=== PATIENT | female | born 1935 | race Caucasian/White ===

== ENCOUNTER 2023-04-22 10:00 | Outpatient (RCR) | payer MEDICARE, SELFPAY ==
[2023-03-25 10:23] VITALS: BP 185/94; PULSE 103; RESP 18; TEMP 35.7; BMI 44.4
--- NOTE | 2023-03-25 11:10 | HP.PCM_ITS ---
History of Present Illness Date of Service: 03/25/23 Chief Complaint: Traumatic wound of the right knee History of Wound: This is an 87-year-old obese, diabetic female who is a resident of [facility] in [place], [place]. The patient is somewhat forgetful and nonspecific about the history of the traumatic wound on her right knee. It appears as though she fell approximately 2 months ago, sustaining an open wound on her right knee. The staff at her independent living facility only recently discovered her wound, and referred her for further evaluation and treatment. Recent management has included the use of saline wet-to-dry dressings on a daily basis. The patient claims to sleep flat at night. Ambulation is somewhat limited, and she requires the use of a walker. She sits a great deal of each day, playing bridge. The patient has multiple pre-existing medical problems, which include diabetes mellitus, hypertension, hyperlipidemia, chronic kidney disease, atrial fibrillation, etc. 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 Swelling of right lower extremity Venous stasis dermatitis of right lower extremity Home Medications acetaminophen 325 mg tablet (Aphen) 325 mg PO Q6H PRN pain 03/25/23 [History Last Taken Unknown] bumetanide 2 mg tablet 2 mg PO BID 03/25/23 [History Last Taken Unknown] cholecalciferol (vitamin D3) 25 mcg (1,000 unit) capsule 25 mcg PO DAILY 03/25/23 [History Last Taken Unknown] cyanocobalamin (vitamin B-12) 1,000 mcg/mL injection kit 100 mcg IM QMONTH 03/25/23 [History Last Taken Unknown] docusate sodium 100 mg tablet (Docuprene) 100 mg PO DAILY 03/25/23 [History Last Taken Unknown] ferrous sulfate 325 mg (65 mg iron) tablet (FeroSul) 325 mg PO DAILY 03/25/23 [History Last Taken Unknown] metoprolol succinate 50 mg tablet,extended release 24 hr (Toprol XL) 50 mg PO BID 03/25/23 [History Last Taken Unknown] pantoprazole 40 mg tablet,delayed release 40 mg PO DAILY 03/25/23 [History Last Taken Unknown] sertraline 50 mg tablet (Zoloft) 50 mg PO DAILY 03/25/23 [History Last Taken Unknown] simvastatin 20 mg tablet 20 mg PO QHS 03/25/23 [History Last Taken Unknown] sitagliptin phosphate 25 mg tablet (Januvia) 25 mg PO DAILY 03/25/23 [History Last Taken Unknown] warfarin 2.5 mg tablet (Jantoven) 2.5 mg PO DAILY 03/25/23 [History Last Taken Unknown] Allergy/AdvReac Type Severity Reaction Status Date / Time No Known Allergies Allergy Verified 03/25/23 10:28 Surgical History History of hysterectomy Social History Smoking Status: Never smoker Vital Signs Vital Signs Vital Signs: 03/25/23 10:23 Temperature 96.2 F L Temperature Source Temporal Pulse Rate 103 H Respiratory Rate 18 Blood Pressure 185/94 H Blood Pressure Mean 124 Blood Pressure Source Monitor Blood Pressure Position Semi-Fowlers Blood Pressure Location Left Arm Weight Weight: 310 lb Body Mass Index (BMI) 44.4 Physical Exam Const alert, oriented x3, no apparent distress and well nourished Constitutional Narrative: The patient is morbidly obese, with a BMI of 44.4. General Appearance: cooperative, comfortable, well kempt and well developed Orientation / Consciousness: awake, oriented to person, oriented to place and oriented to time HEENT normocephalic, head/scalp atraumatic and hearing grossly normal bilaterally Head and Scalp: normal to inspection, normocephalic and atraumatic External Ear: external ears normal Eyes PERRL and EOMs intact bilaterally General Eye: normal appearance of both eyes Resp normal respiratory effort, normal air movement, no retractions and no use of accessory muscles Effort and Inspection: able to speak in complete sentences Extremity no calf tenderness General Extremity: Negative for clubbing or cyanosis Skin Wound Narrative: Mild swelling and edema are noted in the lower extremities bilaterally. Hyperpigmentation and lipodermatosclerosis are noted in the gaiter areas bilaterally. A scaly venous stasis dermatitis is noted in the gaiter areas bilaterally. An open wound is noted on the right knee. There is no sign of infection or cellulitis. Dimensions are documented elsewhere. The base of the wound appears generally pink and healthy in appearance. Undermining is noted from the 2 o'clock position to the 10 o'clock position. Neuro oriented x3, CN's II-XII intact bilaterally and moves all extremities Sensorium / Orientation: awake, alert, oriented to person, oriented to place and oriented to time Psych Appearance: grossly normal and appropriate Attitude: calm Activity / Motor Behavior: appropriate eye contact Speech: normal speech Mood & Affect: euthymic mood Thought Process: normal thought process Thought Content: normal thought content Attention / Concentration: attention grossly intact Debridement Note Debridement Note Wound debrided: Right knee Laterality: Right Type of Debridement: Excisional debridement Anesthesia Used: 5% Lidocaine Gel Depth: Down to and including healthy tissue and in the subcutaneous layer Percentage of wound debrided: 100 Instrument Used: 5mm curette Tissue Removed: Bioburden and nonviable tissue Severity: Fat Layer Exposed Amount of bleeding with debridement: Mild Bleeding Controlled with: Compression and gauze Patient tolerated procedure: Patient tolerated procedure well Debridement Free Text: Undermining is noted at the periphery of the wound from the 2:00 to the 10 o'clock position. Post-Debridement Measurements and Additional Note: Post-Debridement Measurements/Treatment - Nurse 1 - General Ulcer Assessment Start: 03/25/23 10:21 Freq: Status: Active Protocol: .LOWEXT Activity Type Activity Date Activity User E-sign Co-sign Detail Recorded Client Recorded Date Recorded By Document 03/25/23 10:23 Desktop 03/25/23 10:32 03/25/23 10:23 - Today's Visit Information Type of service Initial Visit Arrival Mode Ambulatory Transfer Assistance None Patient Identification Verified (Name & Yes ) Patient Requires Transmission-Based No Precautions Height and Weight Height 5 ft 10 in Weight 310 lb Weight in Pounds 310.0 lbs Body Mass Index (BMI) 44.4 BMI Classification Obese BSA - Isaak 2.51 Vital Signs Temperature (97.8 F-99.1 F) 96.2 F L Temperature Source Temporal Pulse Rate (60-100) 103 H Pulse Location Monitor Respiratory Rate (12-18) 18 Respiratory rate source Observation Blood Pressure (90/60-120/80) 185/94 H Blood Pressure Mean 124 Source Monitor Position Semi-Fowlers Blood Pressure Location Left Arm History Since Last Visit- (Skip if this is Patient's initial visit) Have you changed medications since your No last visit? Any new allergies or adverse reactions No Had a fall/change in ADL's that may No increase risk of falls Signs or symptoms of abuse and/or No neglect since last visit Have you been in the hospital since your No last visit? Has dressing in place as prescribed Yes Has compression in place as prescribed No Has offloadiing in place as prescribed No Experienced any changes in pain level or No management Left Footwear Regular Shoe Right Footwear Regular Shoe Pain Scale: 0-10 Numeric Is Patient Pain Free? Yes Lower Extremity Assessment/ Foot Assessment/ Toe Nail Assessment Right -Posterior Tibial Palpable Yes -Dorsalis Pedis Palpable Yes -Extremity Color Hyperpigmented, Hemosiderin -Hair Growth on Legs Yes -Hair Growth on Toes No -Temperature of Extremity Warm -Capillary Refill Less than 3 Seconds -Dependent Rubor No -Blanched when Elevated No -Lipodermatosclerosis No -Other Deformity No -Prior Foot Ulcer No -Charcot Joint No -Prior Amputation No -Thick No -Discolored No -Deformed No -Improper Length & Hygeine No Left -Posterior Tibial Palpable Yes -Dorsalis Pedis Palpable Yes -Extremity Color Hyperpigmented, Hemosiderin -Hair Growth on Legs Yes -Hair Growth on Toes No -Temperature of Extremity Warm -Capillary Refill Less than 3 Seconds -Dependent Rubor No -Blanched when Elevated No -Lipodermatosclerosis No -Other Deformity No -Prior Foot Ulcer No -Charcot Joint No -Prior Amputation No -Thick No -Discolored No -Deformed No -Improper Length & Hygeine No Neuropathy Assessment Feet - Top Side and Bottom <Entered> (a) Communication Assessment Preferred language Wolof Medical Staff Credentialing Coordinator Required No Able to Read Yes Able to Write Yes Communication Tools None Caregiver Communication Skills No Impairment Impairment Right Hearing Abillity Normal Left Hearing Abillity Normal Visual Assistive Devices None Teaching Assessment Preferences Verbal,Written, Demonstration Barriers to Learning None Readiness To Learn Good Willingness to Engage in Self Management Med Activies Readiness to Engage in Self Management Med Activities Anxiety Level Calm Cooperation Cooperative Perception Coherent Interest in Health Problem Asks Questions Education Importance Acknowledges Need Does Patient Smoke tobacco or other No substances Smoking Status Never smoker Is Patient Diabetic Yes Functional Assessment Recent Decline in Ability to Perform Ambulation Assistive Device With Patient Yes List Device(s) with Patient walker Culture/Jain/Repair Service Dispatcher Cultural/Jain Needs that may affect No Treatment Plan Would you allow our hospital bucket wash operator to No meet you for the purpose of spiritual/ emotional support? Repair Service Dispatcher to contact place of [facility] No Teaching: Wound Center *Welcome to the Wound Center -Person Taught Patient -Teaching Method Discussion, Demonstration -Response to teaching Verbalize understanding (a) 1 - + throughout - Nurse 1 - General Ulcer Measurement Start: 03/25/23 10:21 Freq: Status: Active Protocol: Activity Type Activity Date Activity User E-sign Co-sign Detail Recorded Client Recorded Date Recorded By Document 03/25/23 10:23 RB Desktop 03/25/23 10:32 RB 03/25/23 10:23 Wound Center Nurse 1 1. R knee -Combined with other wound No -Current Size (cm) - Length 1.2 -Current Size (cm) - Width 1.5 -Current Size (cm) - Depth 0.5 -Total Square Cm 1.80 -Photo Taken Yes -Tunneling No -Undermining/Tunneling Yes -Undermining/Tunneling Starts (O'clock 4 ) -Undermining/Tunneling Ends (O'clock) 10 -Maximum Distance (cm) 1 -Circular Undermining No -Exudate Amt Medium -Exudate Type Serosanguineous -Wound Margin Thickened & Rolled Under -Granulation Amt Medium (34-66%) -Granulation Quality [place] -Slough/Fibrin Yes -Necrosis Amt Medium (34-66%) -Necrotic Tissue Type Adherent Slough -Structure Exposed N/A -Texture (Cristal-wound Skin Appearance) Assessed -Moisture (Cristal-wound Skin Appearance) Assessed -Color (Cristal-wound Skin Appearance) Assessed -Temperature (Cristal-wound Skin No Abnormality Appearance) (Pt Warm) -Tenderness on Palpation (Cristal-wound No Skin Appearance) -Ulcer Cleansing Wound Cleanser -Foul Odor after Cleansing No -Anesthetic Used 5% Lidocaine Gel Lower Limb Edema Present Yes Right Calf (cm) 50 Right Ankle (cm) 28.2 Left Calf (cm) 50.5 Left Ankle (cm) 28 - Nurse 3 - General Ulcer D/C NN Start: 03/25/23 10:21 Freq: Status: Active Protocol: Activity Type Activity Date Activity User E-sign Co-sign Detail Recorded Client Recorded Date Recorded By Document 03/25/23 11:02 DL Desktop 03/25/23 11:03 DL 03/25/23 11:02 Wound Care Center Nurse 3 1. R knee -Ulcer Cleansing Rinsed/ Irrigated with Saline -Foul Odor after Cleansing No -Primary Dressing Applied Promogran -Primary Dressing Covered/Secured with Dry Gauze,Dry Gauze & Roll Gauze,Secured with Tape -Promogran 1 mariama -Multi-Layered Wrap Application Unna Boot - Bilateral ($) Treatment Response Procedure Tolerated Well Pain Scale: 0-10 Numeric Is Patient Pain Free? 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 (2) Chronic venous insufficiency: CODE(S): I87.2 - Venous insufficiency (chronic) (peripheral) (3) Venous stasis dermatitis of right lower extremity: CODE(S): I87.2 - Venous insufficiency (chronic) (peripheral) (4) Swelling of right lower extremity: CODE(S): M79.89 - Other specified soft tissue disorders (5) Edema of right lower leg: CODE(S): R60.0 - Localized edema (6) Lipodermatosclerosis: CODE(S): M79.3 - Panniculitis, unspecified (7) Hypertension: CODE(S): I10 - Essential (primary) hypertension (8) Diabetes mellitus: CODE(S): E11.9 - Type 2 diabetes mellitus without complications (9) Hyperlipidemia associated with type 2 diabetes mellitus: CODE(S): E11.69 - Type 2 diabetes mellitus with other specified complication; E78.5 - Hyperlipidemia, unspecified (10) Atrial fibrillation: CODE(S): I48.91 - Unspecified atrial fibrillation (11) Chronic kidney disease, stage IV (severe): CODE(S): N18.4 - Chronic kidney disease, stage 4 (severe) (12) Iron deficiency anemia: CODE(S): D50.9 - Iron deficiency anemia, unspecified (13) Aortic stenosis: CODE(S): I35.0 - Nonrheumatic aortic (valve) stenosis (14) B12 deficiency: CODE(S): E53.8 - Deficiency of other specified B group vitamins (15) Depression: CODE(S): F32.A - Depression, unspecified (16) History of hysterectomy: CODE(S): Z90.710 - Acquired absence of both cervix and uterus (17) Morbid obesity with BMI of 40.0-44.9, adult: CODE(S): E66.01 - Morbid (severe) obesity due to excess calories; Z68.41 - Body mass index [BMI] 40.0-44.9, adult PLAN: Plan This is an 87-year-old obese diabetic female who presents with a traumatic wound on the right knee. The wound has been present for approximately 2 months, though the patient cannot remember specifically when the injury occurred. A dditionally, she presents with swelling, edema, lipodermatosclerosis, and other skin changes in the lower extremities to suggest the presence of chronic venous insufficiency and venous stasis disease. With respect to the wound of the right knee, we are to implement the use of Promogran which will be applied topically on a daily basis. It is to be placed at the base of the wound and in the underm ined portions. Furthermore, we are to implement the use of Unna boots bilaterally, which will be changed twice weekly. The patient has been encouraged to ambulate as much as possible. However, significant enhancement of activity is unlikely. Prolonged idle sitting has been discouraged. The patient is to continue sleeping on a flat mattress at night. She is to elevate her legs during daytime hours as well. Elevation is to be to heart level, or higher. Weight loss has also been recommended. The patient has been advised to optimize her nutritional intake, as well as optimizing her glycemic control. The patient is to return in 1 week for reassessment. Total time: 50 minutes
--- NOTE | 2023-04-02 11:54 | WC ---
Nurse from [facility], Lexis Martin left message that pt was canselling her appt and needed to know what further orders were for pt regarding her wound. Instructed [facility], per her CasemanagerErwin, to continue her present orders, Promogran and Unna Boots until pt returns to Wound Center next week.
[2023-04-15 10:16] VITALS: BP 129/60; PULSE 116; RESP 18; TEMP 36.1; BMI 44.4
--- NOTE | 2023-04-15 10:59 | PCM.WC.HP ---
History of Present Illness Date of Service: 04/15/23 Chief Complaint: Traumatic wound of the right knee History of Wound: This is an 87-year-old obese, diabetic female who is a resident of [facility] in [place], [place]. The patient is somewhat forgetful and nonspecific about the history of the traumatic wound on her right knee. It appears as though she fell approximately 2 months ago, sustaining an open wound on her right knee. The staff at her independent living facility only recently discovered her wound, and referred her for further evaluation and treatment. Recent management had included the use of saline wet-to-dry dressings on a daily basis. The patient claims to sleep flat at night. Ambulation is somewhat limited, and she requires the use of a walker. She sits a great deal of each day, playing bridge. The patient has multiple pre-existing medical problems, which include diabetes mellitus, hypertension, hyperlipidemia, chronic kidney disease, atrial fibrillation, etc. 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 Swelling of right lower extremity Venous stasis dermatitis of right lower extremity Home Medications acetaminophen 325 mg tablet (Aphen) 325 mg PO Q6H PRN pain 03/25/23 [History Last Taken Unknown] bumetanide 2 mg tablet 2 mg PO BID 03/25/23 [History Last Taken Unknown] cholecalciferol (vitamin D3) 25 mcg (1,000 unit) capsule 25 mcg PO DAILY 03/25/23 [History Last Taken Unknown] cyanocobalamin (vitamin B-12) 1,000 mcg/mL injection kit 100 mcg IM QMONTH 03/25/23 [History Last Taken Unknown] docusate sodium 100 mg tablet (Docuprene) 100 mg PO DAILY 03/25/23 [History Last Taken Unknown] ferrous sulfate 325 mg (65 mg iron) tablet (FeroSul) 325 mg PO DAILY 03/25/23 [History Last Taken Unknown] metoprolol succinate 50 mg tablet,extended release 24 hr (Toprol XL) 50 mg PO BID 03/25/23 [History Last Taken Unknown] pantoprazole 40 mg tablet,delayed release 40 mg PO DAILY 03/25/23 [History Last Taken Unknown] sertraline 50 mg tablet (Zoloft) 50 mg PO DAILY 03/25/23 [History Last Taken Unknown] simvastatin 20 mg tablet 20 mg PO QHS 03/25/23 [History Last Taken Unknown] sitagliptin phosphate 25 mg tablet (Januvia) 25 mg PO DAILY 03/25/23 [History Last Taken Unknown] warfarin 2.5 mg tablet (Jantoven) 2.5 mg PO DAILY 03/25/23 [History Last Taken Unknown] Allergy/AdvReac Type Severity Reaction Status Date / Time No Known Allergies Allergy Verified 03/25/23 10:28 Surgical History History of hysterectomy Social History Smoking Status: Never smoker Vital Signs Vital Signs Vital Signs: 04/15/23 10:16 Temperature 97.0 F L Temperature Source Temporal Pulse Rate 116 H Respiratory Rate 18 Blood Pressure 129/60 H Blood Pressure Mean 83 Blood Pressure Source Monitor Blood Pressure Position Sitting Blood Pressure Location Right Arm Oxygen Delivery Method Room Air Weight Weight: 310 lb Body Mass Index (BMI) 44.4 Physical Exam Const alert, oriented x3, no apparent distress and well nourished Constitutional Narrative: The patient is morbidly obese, with a BMI of 44.4. General Appearance: cooperative, comfortable, well kempt and well developed Orientation / Consciousness: awake, oriented to person, oriented to place and oriented to time HEENT normocephalic, head/scalp atraumatic and hearing grossly normal bilaterally Head and Scalp: normal to inspection, normocephalic and atraumatic External Ear: external ears normal Eyes PERRL and EOMs intact bilaterally General Eye: normal appearance of both eyes Resp normal respiratory effort, normal air movement, no retractions and no use of accessory muscles Effort and Inspection: able to speak in complete sentences Extremity no calf tenderness General Extremity: Negative for clubbing or cyanosis Skin Wound Narrative: Mild swelling and edema are noted in the lower extremities bilaterally. Hyperpigmentation and lipodermatosclerosis are noted in the gaiter areas bilaterally. A scaly venous stasis dermatitis is noted in the gaiter areas bilaterally. An open wound is noted on the right knee. There is no sign of infection or cellulitis. Dimensions are documented elsewhere. The wound is smaller than noted previously. The base of the wound appears generally pink and healthy in appearance, with a small amount of bioburden and necrotic tissue noted at the periphery. Less undermining is noted than previously observed. Neuro oriented x3, CN's II-XII intact bilaterally and moves all extremities Sensorium / Orientation: awake, alert, oriented to person, oriented to place and oriented to time Psych Appearance: grossly normal and appropriate Attitude: calm Activity / Motor Behavior: appropriate eye contact Speech: normal speech Mood & Affect: euthymic mood Thought Process: normal thought process Thought Content: normal thought content Attention / Concentration: attention grossly intact Debridement Note Debridement Note Wound debrided: Right knee Laterality: Right Type of Debridement: Excisional debridement Anesthesia Used: 5% Lidocaine Gel Depth: Down to and including healthy tissue and in the subcutaneous layer Percentage of wound debrided: 100 Instrument Used: 5mm curette Tissue Removed: Bioburden and nonviable tissue Severity: Fat Layer Exposed Amount of bleeding with debridement: Mild Bleeding Controlled with: Compression and gauze Patient tolerated procedure: Patient tolerated procedure well Post-Debridement Measurements and Additional Note: Post-Debridement Measurements/Treatment - Nurse 1 - General Ulcer Assessment Start: 03/25/23 10:21 Freq: Status: Active Protocol: .OWEN Activity Type Activity Date Activity User E-sign Co-sign Detail Recorded Client Recorded Date Recorded By Document 03/25/23 10:23 Desktop 03/25/23 10:32 Document 04/15/23 10:16 [id number] 04/15/23 10:31 03/25/23 04/15/23 10:23 10:16 - Today's Visit Information Type of service Initial Visit Follow-up Visit (Physician/UNIFORM DESIGNER ) Arrival Mode Ambulatory Wheelchair Transfer Assistance None None Patient Identification Verified (Name & Yes Yes ) Patient Requires Transmission-Based No No Precautions Safety Precautions Fall Prevention Height and Weight Height 5 ft 10 in Weight 310 lb Weight in Pounds 310.0 lbs Body Mass Index (BMI) 44.4 44.4 BMI Classification Obese Obese BSA - Isaak 2.51 Vital Signs Temperature (97.8 F-99.1 F) 96.2 F L 97.0 F L Temperature Source Temporal Temporal Pulse Rate (60-100) 103 H 116 H Pulse Location Monitor Monitor Respiratory Rate (12-18) 18 18 Respiratory rate source Observation Observation Oxygen Delivery Method Room Air Blood Pressure (90/60-120/80) 185/94 H 129/60 H Blood Pressure Mean 124 83 Source Monitor Monitor Position Semi-Fowlers Sitting Blood Pressure Location Left Arm Right Arm History Since Last Visit- (Skip if this is Patient's initial visit) Have you changed medications since your No No last visit? Any new allergies or adverse reactions No No Had a fall/change in ADL's that may No No increase risk of falls Signs or symptoms of abuse and/or No No neglect since last visit Have you been in the hospital since your No No last visit? Has dressing in place as prescribed Yes Has compression in place as prescribed No No Has offloadiing in place as prescribed No N/A Experienced any changes in pain level or No Yes management Left Footwear Regular Shoe Regular Shoe Right Footwear Regular Shoe Regular Shoe Pain Scale: 0-10 Numeric Is Patient Pain Free? Yes Yes Lower Extremity Assessment/ Foot Assessment/ Toe Nail Assessment Right -Posterior Tibial Palpable Yes -Dorsalis Pedis Palpable Yes -Extremity Color Hyperpigmented, Hemosiderin -Hair Growth on Legs Yes -Hair Growth on Toes No -Temperature of Extremity Warm -Capillary Refill Less than 3 Seconds -Dependent Rubor No -Blanched when Elevated No -Lipodermatosclerosis No -Other Deformity No -Prior Foot Ulcer No -Charcot Joint No -Prior Amputation No -Thick No -Discolored No -Deformed No -Improper Length & Hygeine No Left -Posterior Tibial Palpable Yes -Dorsalis Pedis Palpable Yes -Extremity Color Hyperpigmented, Hemosiderin -Hair Growth on Legs Yes -Hair Growth on Toes No -Temperature of Extremity Warm -Capillary Refill Less than 3 Seconds -Dependent Rubor No -Blanched when Elevated No -Lipodermatosclerosis No -Other Deformity No -Prior Foot Ulcer No -Charcot Joint No -Prior Amputation No -Thick No -Discolored No -Deformed No -Improper Length & Hygeine No Neuropathy Assessment Feet - Top Side and Bottom <Entered> (a) Communication Assessment Preferred 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 Able to Read Yes Able to Write Yes Communication Tools None Caregiver Communication Skills No Impairment Impairment Right Hearing Abillity Normal Left Hearing Abillity Normal Visual Assistive Devices None Teaching Assessment Preferences Verbal,Written, Demonstration Barriers to Learning None Readiness To Learn Good Willingness to Engage in Self Management Med Activies Readiness to Engage in Self Management Med Activities Anxiety Level Calm Cooperation Cooperative Perception Coherent Interest in Health Problem Asks Questions Education Importance Acknowledges Need Does Patient Smoke tobacco or other No substances Smoking Status Never smoker Is Patient Diabetic Yes Functional Assessment Recent Decline in Ability to Perform Ambulation Assistive Device With Patient Yes List Device(s) with Patient walker Culture/Lutheran/Tram Driver Cultural/Lutheran Needs that may affect No Treatment Plan Would you allow [facility] drug counselor to No meet you for the purpose of spiritual/ emotional support? Tram Driver to contact place of anglican No Teaching: Wound Center *Welcome to the Wound Center -Person Taught Patient -Teaching Method Discussion, Demonstration -Response to teaching Verbalize understanding (a) 1 - + throughout WC - Nurse 1 - General Ulcer Measurement Start: 03/25/23 10:21 Freq: Status: Active Protocol: Activity Type Activity Date Activity User E-sign Co-sign Detail Recorded Client Recorded Date Recorded By Document 03/25/23 10:23 Desktop 03/25/23 10:32 RB Document 04/15/23 10:16 [id number] 04/15/23 10:31 03/25/23 04/15/23 10:23 10:16 Wound Center Nurse 1 1. R knee -Combined with other wound No -Current Size (cm) - Length 1.2 1 -Current Size (cm) - Width 1.5 1.4 -Current Size (cm) - Depth 0.5 0.2 -Total Square Cm 1.80 1.4 -Photo Taken Yes No -Epithelialization Small 1-33% -Tunneling No No -Undermining/Tunneling Yes No -Undermining/Tunneling Starts (O'clock 4 ) -Undermining/Tunneling Ends (O'clock) 10 -Maximum Distance (cm) 1 -Circular Undermining No No -Exudate Amt Medium Medium -Exudate Type Serosanguineous Yellow/Green -Wound Margin Thickened & Distinct, Rolled Under Outline Attached -Granulation Amt Medium (34-66%) Medium (34-66%) -Granulation Quality [place] Red -Slough/Fibrin Yes Yes -Necrosis Amt Medium (34-66%) Medium (34-66%) -Necrotic Tissue Type Adherent Slough -Structure Exposed N/A N/A -Texture (Cristal-wound Skin Appearance) Assessed Assessed -Moisture (Cristal-wound Skin Appearance) Assessed Assessed -Color (Cristal-wound Skin Appearance) Assessed Assessed -Temperature (Cristal-wound Skin No Abnormality No Abnormality Appearance) (Pt Warm) (Pt Warm) -Tenderness on Palpation (Cristal-wound No No Skin Appearance) -Ulcer Cleansing Wound Cleanser Soap and Water -Foul Odor after Cleansing No No -Anesthetic Used 5% Lidocaine 5% Lidocaine Gel Gel Lower Limb Edema Present Yes Right Calf (cm) 50 52.8 Right Ankle (cm) 28.2 28.5 Left Calf (cm) 50.5 Left Ankle (cm) 28 REBEKA - Nurse 2 - General Ulcer CM Notes Start: 03/25/23 10:21 Freq: Status: Active Protocol: Activity Type Activity Date Activity User E-sign Co-sign Detail Recorded Client Recorded Date Recorded By Document 03/25/23 11:32 PL [id number] 03/25/23 11:34 PL 03/25/23 11:32 Wound Center Nurse 2 1. R knee -Time 10:50 -Correct Patient Yes -Correct Side, Site, Position Yes -Correct Procedure Yes -Procedure Performed Yes -Type of Procedure Debridement -Clinical Debridement Subcutaneous -Tissue Removed Subcutaneous -Post Debridement (cm) - Length 1.2 -Post Debridement (cm) - Width 1.5 -Post Debridement (cm) - Depth 0.5 -Total Square (Post) (cm) 1.80 -Area of Debridement (cm) - Length 1.2 -Area of Debridement (cm) - Width 1.5 -Total Square (Area) (cm) 1.80 -Undermining/Tunneling Yes -Undermining/Tunneling Starts (O'clock 12 ) -Undermining/Tunneling Ends (O'clock) 12 -Maximum Distance (cm) 0.2 -Circular Undermining Yes -Wound/Ulcer Outcome Not Healed -Ulcer Cleansing Rinsed/ Irrigated with Saline -Foul Odor after Cleansing No -Bioengineered Tissue No -Bleeding Controlled with Pressure -Treatment Response Procedure Tolerated Well -Debridement - Subq, 1st 20sq cm Yes Pain Scale: 0-10 Numeric Is Patient Pain Free? Yes REBEKA - Nurse 3 - General Ulcer D/C NN Start: 03/25/23 10:21 Freq: Status: Active Protocol: Activity Type Activity Date Activity User E-sign Co-sign Detail Recorded Client Recorded Date Recorded By Document 03/25/23 11:02 DL Desktop 03/25/23 11:03 DL 03/25/23 11:02 Wound Care Center Nurse 3 1. R knee -Ulcer Cleansing Rinsed/ Irrigated with Saline -Foul Odor after Cleansing No -Primary Dressing Applied Promogran -Primary Dressing Covered/Secured with Dry Gauze,Dry Gauze & Roll Gauze,Secured with Tape -Promogran 1 mariama -Multi-Layered Wrap Application Unna Boot - Bilateral ($) Treatment Response Procedure Tolerated Well Pain Scale: 0-10 Numeric Is Patient Pain Free? 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 (2) Chronic venous insufficiency: CODE(S): I87.2 - Venous insufficiency (chronic) (peripheral) (3) Venous stasis dermatitis of right lower extremity: CODE(S): I87.2 - Venous insufficiency (chronic) (peripheral) (4) Swelling of right lower extremity: CODE(S): M79.89 - Other specified soft tissue disorders (5) Edema of right lower leg: CODE(S): R60.0 - Localized edema (6) Lipodermatosclerosis: CODE(S): M79.3 - Panniculitis, unspecified (7) Hypertension: CODE(S): I10 - Essential (primary) hypertension (8) Diabetes mellitus: CODE(S): E11.9 - Type 2 diabetes mellitus without complications (9) Hyperlipidemia associated with type 2 diabetes mellitus: CODE(S): E11.69 - Type 2 diabetes mellitus with other specified complication; E78.5 - Hyperlipidemia, unspecified (10) Atrial fibrillation: CODE(S): I48.91 - Unspecified atrial fibrillation (11) Chronic kidney disease, stage IV (severe): CODE(S): N18.4 - Chronic kidney disease, stage 4 (severe) (12) Iron deficiency anemia: CODE(S): D50.9 - Iron deficiency anemia, unspecified (13) Aortic stenosis: CODE(S): I35.0 - Nonrheumatic aortic (valve) stenosis (14) B12 deficiency: CODE(S): E53.8 - Deficiency of other specified B group vitamins (15) Depression: CODE(S): F32.A - Depression, unspecified (16) History of hysterectomy: CODE(S): Z90.710 - Acquired absence of both cervix and uterus (17) Morbid obesity with BMI of 40.0-44.9, adult: CODE(S): E66.01 - Morbid (severe) obesity due to excess calories; Z68.41 - Body mass index [BMI] 40.0-44.9, adult PLAN: Plan This is an 87-year-old obese diabetic female who presents with a traumatic wound on the right knee. The wound has been present for approximately 2 months, though the patient cannot remember specifically when the injury occurred. Additionally, she presented with swelling, edema, lipodermatosclerosis, and other skin changes in the lower extremities to suggest the presence of chronic venous insufficiency and venous stasis disease. With respect to the wound of the right knee, we are to continue the use of Promogran which will be applied topically on a daily basis. We are also to continue the use of Unna boots bilaterally, which will be changed twice weekly. The patient has been encouraged to ambulate as much as possible. However, significant enhancement of activity is unlikely. Prolonged idle sitting has been discouraged. The patient is to continue sleeping on a flat mattress at night. She is to elevate her legs during daytime hours as well. Elevation is to be to heart level, or higher. Weight loss has also been recommended. The patient has been advised to optimize her nutritional intake, as well as optimizing her glycemic control. The patient is to return in 1 week for reassessment. Total time: 25 minutes
[2023-04-22 09:38] VITALS: BP 111/63; PULSE 73; RESP 18; BMI 44.4
--- NOTE | 2023-04-22 12:39 | PCM.WC.HP ---
History of Present Illness Date of Service: 04/22/23 Chief Complaint: Traumatic wound of the right knee History of Wound: This is an 87-year-old obese, diabetic female who is a resident of [facility] in [place], [place]. The patient is somewhat forgetful and nonspecific about the history of the traumatic wound on her right knee. It appears as though she fell approximately 2 months ago, sustaining an open wound on her right knee. The staff at her independent living facility only recently discovered her wound, and referred her for further evaluation and treatment. Recent management had included the use of saline wet-to-dry dressings on a daily basis. The patient claims to sleep flat at night. Ambulation is somewhat limited, and she requires the use of a walker. She sits a great deal of each day, playing bridge. The patient has multiple pre-existing medical problems, which include diabetes mellitus, hypertension, hyperlipidemia, chronic kidney disease, atrial fibrillation, etc. 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 Swelling of right lower extremity Venous stasis dermatitis of right lower extremity Home Medications acetaminophen 325 mg tablet (Aphen) 325 mg PO Q6H PRN pain 03/25/23 [History Last Taken Unknown] bumetanide 2 mg tablet 2 mg PO BID 03/25/23 [History Last Taken Unknown] cholecalciferol (vitamin D3) 25 mcg (1,000 unit) capsule 25 mcg PO DAILY 03/25/23 [History Last Taken Unknown] cyanocobalamin (vitamin B-12) 1,000 mcg/mL injection kit 100 mcg IM QMONTH 03/25/23 [History Last Taken Unknown] docusate sodium 100 mg tablet (Docuprene) 100 mg PO DAILY 03/25/23 [History Last Taken Unknown] ferrous sulfate 325 mg (65 mg iron) tablet (FeroSul) 325 mg PO DAILY 03/25/23 [History Last Taken Unknown] metoprolol succinate 50 mg tablet,extended release 24 hr (Toprol XL) 50 mg PO BID 03/25/23 [History Last Taken Unknown] pantoprazole 40 mg tablet,delayed release 40 mg PO DAILY 03/25/23 [History Last Taken Unknown] sertraline 50 mg tablet (Zoloft) 50 mg PO DAILY 03/25/23 [History Last Taken Unknown] simvastatin 20 mg tablet 20 mg PO QHS 03/25/23 [History Last Taken Unknown] sitagliptin phosphate 25 mg tablet (Januvia) 25 mg PO DAILY 03/25/23 [History Last Taken Unknown] warfarin 2.5 mg tablet (Jantoven) 2.5 mg PO DAILY 03/25/23 [History Last Taken Unknown] Allergy/AdvReac Type Severity Reaction Status Date / Time No Known Allergies Allergy Verified 03/25/23 10:28 Surgical History History of hysterectomy Social History Smoking Status: Never smoker Vital Signs Vital Signs Vital Signs: 04/22/23 09:38 Temperature Source Temporal Pulse Rate 73 Respiratory Rate 18 Blood Pressure 111/63 Blood Pressure Mean 79 Blood Pressure Source Monitor Blood Pressure Position Sitting Blood Pressure Location Right Arm Oxygen Delivery Method Room Air Weight Weight: 310 lb Body Mass Index (BMI) 44.4 Physical Exam Const alert, oriented x3, no apparent distress and well nourished Constitutional Narrative: The patient is morbidly obese, with a BMI of 44.4. General Appearance: cooperative, comfortable, well kempt and well developed Orientation / Consciousness: awake, oriented to person, oriented to place and oriented to time HEENT normocephalic, head/scalp atraumatic and hearing grossly normal bilaterally Head and Scalp: normal to inspection, normocephalic and atraumatic External Ear: external ears normal Eyes PERRL and EOMs intact bilaterally General Eye: normal appearance of both eyes Resp normal respiratory effort, normal air movement, no retractions and no use of accessory muscles Effort and Inspection: able to speak in complete sentences Extremity no calf tenderness General Extremity: Negative for clubbing or cyanosis Skin Wound Narrative: Mild swelling and edema are noted in the lower extremities bilaterally. Hyperpigmentation and lipodermatosclerosis are noted in the gaiter areas bilaterally. A scaly venous stasis dermatitis is noted in the gaiter areas bilaterally. Several superficial excoriations are noted on the right anterior supra-malleolar area. An open wound is noted on the right knee. There is no sign of infection or cellulitis. Dimensions are documented elsewhere. The wound is smaller than noted previously. The base of the wound appears generally pink and healthy in appearance, with a small amount of bioburden. Minimal undermining is noted. Neuro oriented x3, CN's II-XII intact bilaterally and moves all extremities Sensorium / Orientation: awake, alert, oriented to person, oriented to place and oriented to time Psych Appearance: grossly normal and appropriate Attitude: calm Activity / Motor Behavior: appropriate eye contact Speech: normal speech Mood & Affect: euthymic mood Thought Process: normal thought process Thought Content: normal thought content Attention / Concentration: attention grossly intact Debridement Note Debridement Note Wound debrided: Right knee Laterality: Right Type of Debridement: Excisional debridement Anesthesia Used: 5% Lidocaine Gel Depth: Down to and including healthy tissue and in the subcutaneous layer Percentage of wound debrided: 100 Instrument Used: 5mm curette Tissue Removed: Bioburden and nonviable tissue Severity: Fat Layer Exposed Amount of bleeding with debridement: Mild Bleeding Controlled with: Compression and gauze Patient tolerated procedure: Patient tolerated procedure well Post-Debridement Measurements and Additional Note: Post-Debridement Measurements/Treatment - Nurse 1 - General Ulcer Assessment Start: 03/25/23 10:21 Freq: Status: Active Protocol: SUE Activity Type Activity Date Activity User E-sign Co-sign Detail Recorded Client Recorded Date Recorded By Document 03/25/23 10:23 Desktop 03/25/23 10:32 RB Document 04/15/23 10:16 [id number] 04/15/23 10:31 Document 04/22/23 09:38 TN Desktop 04/22/23 09:43 TN 03/25/23 04/15/23 04/22/23 10:23 10:16 09:38 - Today's Visit Information Type of service Initial Visit Follow-up Visit Follow-up Visit (Physician/INVESTIGATIVE RESEARCH SPECIALIST (Physician/INVESTIGATIVE RESEARCH SPECIALIST ) ) Arrival Mode Ambulatory Wheelchair Ambulatory Transfer Assistance None None Accompanied by self Patient Identification Verified (Name & Yes Yes Yes ) Patient Requires Transmission-Based No No Precautions Safety Precautions Fall Prevention Fall Prevention Height and Weight Height 5 ft 10 in Weight 310 lb Weight in Pounds 310.0 lbs Body Mass Index (BMI) 44.4 44.4 44.4 BMI Classification Obese Obese Obese BSA - Isaak 2.51 Vital Signs Temperature (97.8 F-99.1 F) 96.2 F L 97.0 F L Temperature Source Temporal Temporal Temporal Pulse Rate (60-100) 103 H 116 H 73 Pulse Location Monitor Monitor Monitor Respiratory Rate (12-18) 18 18 18 Respiratory rate source Observation Observation Observation Oxygen Delivery Method Room Air Room Air Blood Pressure (90/60-120/80) 185/94 H 129/60 H 111/63 Blood Pressure Mean 124 83 79 Source Monitor Monitor Monitor Position Semi-Fowlers Sitting Sitting Blood Pressure Location Left Arm Right Arm Right Arm History Since Last Visit- (Skip if this is Patient's initial visit) Have you changed medications since your No No last visit? Any new allergies or adverse reactions No No Had a fall/change in ADL's that may No No increase risk of falls Signs or symptoms of abuse and/or No No neglect since last visit Have you been in the hospital since your No No last visit? Has dressing in place as prescribed Yes Yes Has compression in place as prescribed No No N/A Has offloadiing in place as prescribed No N/A N/A Experienced any changes in pain level or No Yes Yes management Left Footwear Regular Shoe Regular Shoe Regular Shoe Right Footwear Regular Shoe Regular Shoe Regular Shoe Pain Scale: 0-10 Numeric Is Patient Pain Free? Yes Yes Yes Lower Extremity Assessment/ Foot Assessment/ Toe Nail Assessment Right -Posterior Tibial Palpable Yes -Dorsalis Pedis Palpable Yes -Extremity Color Hyperpigmented, Hemosiderin -Hair Growth on Legs Yes -Hair Growth on Toes No -Temperature of Extremity Warm -Capillary Refill Less than 3 Seconds -Dependent Rubor No -Blanched when Elevated No -Lipodermatosclerosis No -Other Deformity No -Prior Foot Ulcer No -Charcot Joint No -Prior Amputation No -Thick No -Discolored No -Deformed No -Improper Length & Hygeine No Left -Posterior Tibial Palpable Yes -Dorsalis Pedis Palpable Yes -Extremity Color Hyperpigmented, Hemosiderin -Hair Growth on Legs Yes -Hair Growth on Toes No -Temperature of Extremity Warm -Capillary Refill Less than 3 Seconds -Dependent Rubor No -Blanched when Elevated No -Lipodermatosclerosis No -Other Deformity No -Prior Foot Ulcer No -Charcot Joint No -Prior Amputation No -Thick No -Discolored No -Deformed No -Improper Length & Hygeine No Neuropathy Assessment Feet - Top Side and Bottom <Entered> (a) Communication Assessment Preferred language [place] [employer] Group Leader Required No Able to Read Yes Able to Write Yes Communication Tools None Caregiver Communication Skills No Impairment Impairment Right Hearing Abillity Normal Left Hearing Abillity Normal Visual Assistive Devices None Teaching Assessment Preferences Verbal,Written, Demonstration Barriers to Learning None Readiness To Learn Good Willingness to Engage in Self Management Med Activies Readiness to Engage in Self Management Med Activities Anxiety Level Calm Cooperation Cooperative Perception Coherent Interest in Health Problem Asks Questions Education Importance Acknowledges Need Does Patient Smoke tobacco or other No substances Smoking Status Never smoker Is Patient Diabetic Yes Functional Assessment Recent Decline in Ability to Perform Ambulation Assistive Device With Patient Yes List Device(s) with Patient walker Culture/Zoroastrianism/Robotics Engineer Cultural/Zoroastrianism Needs that may affect No Treatment Plan Would you allow our hospital tobacco blender to No meet you for the purpose of spiritual/ emotional support? Robotics Engineer to contact place of episcopalian No Teaching: Wound Center *Welcome to the Wound Center -Person Taught Patient -Teaching Method Discussion, Demonstration -Response to teaching Verbalize understanding (a) 1 - + throughout WC - Nurse 1 - General Ulcer Measurement Start: 03/25/23 10:21 Freq: Status: Active Protocol: Activity Type Activity Date Activity User E-sign Co-sign Detail Recorded Client Recorded Date Recorded By Document 03/25/23 10:23 Desktop 03/25/23 10:32 RB Document 04/15/23 10:16 [id number] 04/15/23 10:31 Document 04/22/23 09:38 TN Desktop 04/22/23 09:43 TN 03/25/23 04/15/23 04/22/23 10:23 10:16 09:38 Wound Center Nurse 1 1. R knee -Combined with other wound No -Current Size (cm) - Length 1.2 1 0.9 -Current Size (cm) - Width 1.5 1.4 1.5 -Current Size (cm) - Depth 0.5 0.2 0.2 -Total Square Cm 1.80 1.4 1.35 -Photo Taken Yes No -Epithelialization Small 1-33% -Tunneling No No Yes -Tunneling Position (O'clock) 9 -Tunneling Distance (cm) 0.5 -Undermining/Tunneling Yes No -Undermining/Tunneling Starts (O'clock 4 ) -Undermining/Tunneling Ends (O'clock) 10 -Maximum Distance (cm) 1 -Circular Undermining No No -Exudate Amt Medium Medium -Exudate Type Serosanguineous Yellow/Green -Wound Margin Thickened & Distinct, Flat & Intact Rolled Under Outline Attached -Granulation Amt Medium (34-66%) Medium (34-66%) Large (67-100%) -Granulation Quality [place] Red Pale,[place] -Slough/Fibrin Yes Yes -Necrosis Amt Medium (34-66%) Medium (34-66%) Small (1-33%) -Necrotic Tissue Type Adherent Slough Adherent Slough -Structure Exposed N/A N/A -Texture (Cristal-wound Skin Appearance) Assessed Assessed Assessed -Moisture (Cristal-wound Skin Appearance) Assessed Assessed Assessed -Color (Cristal-wound Skin Appearance) Assessed Assessed Assessed -Temperature (Cristal-wound Skin No Abnormality No Abnormality No Abnormality Appearance) (Pt Warm) (Pt Warm) (Pt Warm) -Tenderness on Palpation (Cristal-wound No No No Skin Appearance) -Ulcer Cleansing Wound Cleanser Soap and Water Soap and Water -Foul Odor after Cleansing No No No -Anesthetic Used 5% Lidocaine 5% Lidocaine 5% Lidocaine Gel Gel Gel Lower Limb Edema Present Yes Right Calf (cm) 50 52.8 48 Right Ankle (cm) 28.2 28.5 25 Left Calf (cm) 50.5 45 Left Ankle (cm) 28 24 WC - Nurse 2 - General Ulcer CM Notes Start: 03/25/23 10:21 Freq: Status: Active Protocol: Activity Type Activity Date Activity User E-sign Co-sign Detail Recorded Client Recorded Date Recorded By Document 03/25/23 11:32 PL [id number] 03/25/23 11:34 PL Document 04/15/23 12:36 PL [id number] 04/15/23 12:36 PL 03/25/23 04/15/23 11:32 12:36 Wound Center Nurse 2 1. R knee -Time 10:50 10:48 -Correct Patient Yes Yes -Correct Side, Site, Position Yes Yes -Correct Procedure Yes Yes -Procedure Performed Yes Yes -Type of Procedure Debridement Debridement -Clinical Debridement Subcutaneous Subcutaneous -Tissue Removed Subcutaneous Subcutaneous -Post Debridement (cm) - Length 1.2 1.0 -Post Debridement (cm) - Width 1.5 1.4 -Post Debridement (cm) - Depth 0.5 0.2 -Total Square (Post) (cm) 1.80 1.40 -Area of Debridement (cm) - Length 1.2 1.0 -Area of Debridement (cm) - Width 1.5 1.4 -Total Square (Area) (cm) 1.80 1.40 -Tunneling No -Undermining/Tunneling Yes No -Undermining/Tunneling Starts (O'clock 12 ) -Undermining/Tunneling Ends (O'clock) 12 -Maximum Distance (cm) 0.2 -Circular Undermining Yes No -Wound/Ulcer Outcome Not Healed Not Healed -Ulcer Cleansing Rinsed/ Rinsed/ Irrigated with Irrigated with Saline Saline -Foul Odor after Cleansing No No -Bioengineered Tissue No No -Bleeding Controlled with Pressure Pressure -Treatment Response Procedure Procedure Tolerated Well Tolerated Well -Debridement - Subq, 1st 20sq cm Yes Yes Pain Scale: 0-10 Numeric Is Patient Pain Free? Yes Yes WC - Nurse 3 - General Ulcer D/C NN Start: 03/25/23 10:21 Freq: Status: Active Protocol: Activity Type Activity Date Activity User E-sign Co-sign Detail Recorded Client Recorded Date Recorded By Document 03/25/23 11:02 DL [employer] 03/25/23 11:03 DL Document 04/15/23 12:45 KW [id number] 04/15/23 12:45 KW Document 04/22/23 10:10 KW Desktop 04/22/23 10:10 KW 03/25/23 04/15/23 04/22/23 11:02 12:45 10:10 Wound Care Center Nurse 3 1. R knee -Ulcer Cleansing Rinsed/ Irrigated with Saline -Foul Odor after Cleansing No -Primary Dressing Applied Promogran Promogran Promogran -Primary Dressing Covered/Secured with Dry Gauze,Dry Dry Gauze & Gauze & Roll Roll Gauze, Gauze,Secured Secured with with Tape Tape -Promogran 1 1 1 mariama -Multi-Layered Wrap Application Unna Boot - Unna Boot - Multi-Layer Bilateral ($) Bilateral ($) Comp - Bilat ($ ) Treatment Response Procedure Tolerated Well Pain Scale: 0-10 Numeric Is Patient Pain Free? 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 (2) Chronic venous insufficiency: CODE(S): I87.2 - Venous insufficiency (chronic) (peripheral) (3) Venous stasis dermatitis of right lower extremity: CODE(S): I87.2 - Venous insufficiency (chronic) (peripheral) (4) Swelling of right lower extremity: CODE(S): M79.89 - Other specified soft tissue disorders (5) Edema of right lower leg: CODE(S): R60.0 - Localized edema (6) Lipodermatosclerosis: CODE(S): M79.3 - Panniculitis, unspecified (7) Hypertension: CODE(S): I10 - Essential (primary) hypertension (8) Diabetes mellitus: CODE(S): E11.9 - Type 2 diabetes mellitus without complications (9) Hyperlipidemia associated with type 2 diabetes mellitus: CODE(S): E11.69 - Type 2 diabetes mellitus with other specified complication; E78.5 - Hyperlipidemia, unspecified (10) Atrial fibrillation: CODE(S): I48.91 - Unspecified atrial fibrillation (11) Chronic kidney disease, stage IV (severe): CODE(S): N18.4 - Chronic kidney disease, stage 4 (severe) (12) Iron deficiency anemia: CODE(S): D50.9 - Iron deficiency anemia, unspecified (13) Aortic stenosis: CODE(S): I35.0 - Nonrheumatic aortic (valve) stenosis (14) B12 deficiency: CODE(S): E53.8 - Deficiency of other specified B group vitamins (15) Depression: CODE(S): F32.A - Depression, unspecified (16) History of hysterectomy: CODE(S): Z90.710 - Acquired absence of both cervix and uterus (17) Morbid obesity with BMI of 40.0-44.9, adult: CODE(S): E66.01 - Morbid (severe) obesity due to excess calories; Z68.41 - Body mass index [BMI] 40.0-44.9, adult PLAN: Plan This is an 87-year-old obese diabetic female who presented with a traumatic wound on the right knee. The wound had been present for approximately 2 months, though the patient cannot remember specifically when the injury occurred. Additionally, she presented with swelling, edema, lipodermatosclerosis, and other skin changes in the lower extremities to suggest the presence of chronic venous insufficiency and venous stasis disease. With respect to the wound of the right knee, we are to continue the use of Promogran which will be applied topically on a daily basis. We are also to continue the use of Unna boots bilaterally, which will be changed twice weekly. However, the Unna boots are out of stock, so a 3M 2 layer compression wrap will be substituted. Promogran is to be applied topically to the excoriations in the right supramalleolar area. The patient has been encouraged to ambulate as much as possible. However, significant enhancement of activity is unlikely. Prolonged idle sitting has been discouraged. The patient is to continue sleeping on a flat mattress at night. She is to elevate her legs during daytime hours as well. Elevation is to be to heart level, or higher. Weight loss has also been recommended. The patient has been advised to optimize her nutritional intake, as well as optimizing her glycemic control. An attempt will be made to obtain pneumatic mechanical compression pumps for the patient's use. The patient is to return in 1 week for reassessment. Total time: 26 minutes
== END 2023-04-23 23:59 | disposition home or self-care (01) ==
LOC: WC 10:00
PROVIDERS: PCP Family Medicine; Referring Provider Family Medicine; Visit Provider Surgery
DX: L97.112 Non-pressure chronic ulcer of right thigh with fat layer exposed (principal); E11.22 Type 2 diabetes mellitus with diabetic chronic kidney disease; E11.59 Type 2 diabetes mellitus with other circulatory complications; E11.40 Type 2 diabetes mellitus with diabetic neuropathy, unspecified; N18.4 Chronic kidney disease, stage 4 (severe); I48.91 Unspecified atrial fibrillation; E66.01 Morbid (severe) obesity due to excess calories; Z68.41 Body mass index [BMI] 40.0-44.9, adult; I35.0 Nonrheumatic aortic (valve) stenosis; E78.5 Hyperlipidemia, unspecified; I87.2 Venous insufficiency (chronic) (peripheral); I12.9 Hypertensive chronic kidney disease with stage 1 through stage 4 chronic kidney disease, or unspecified chronic kidney disease; D50.9 Iron deficiency anemia, unspecified; R60.0 Localized edema; Z90.710 Acquired absence of both cervix and uterus; F32.A Depression, unspecified; E53.8 Deficiency of other specified B group vitamins
CPT/HCPCS: 11042; 29580; 29581; 99213; G0463

== ENCOUNTER 2023-05-13 09:30 | Outpatient (RCR) | payer MEDICARE, SELFPAY ==
[2023-04-24 00:10] VITALS: BP 111/63; PULSE 73; RESP 18; TEMP 36.1; BMI 44.4
[2023-04-29 09:16] VITALS: BP 109/63; PULSE 63; RESP 18; BMI 44.4
--- NOTE | 2023-04-29 09:36 | HP.PCM_ITS ---
History of Present Illness Date of Service: 04/29/23 Chief Complaint: Traumatic wound of the right knee History of Wound: This is an 87-year-old obese, diabetic female who is a resident of [facility] in [place], [place]. The patient is somewhat forgetful and nonspecific about the history of the traumatic wound on her right knee. It appears as though she fell approximately 2 months ago, sustaining an open wound on her right knee. The staff at her independent living facility only recently discovered her wound, and referred her for further evaluation and treatment. Recent management had included the use of saline wet-to-dry dressings on a daily basis. The patient claims to sleep flat at night. Ambulation is somewhat limited, and she requires the use of a walker. She sits a great deal of each day, playing bridge. The patient has multiple pre-existing medical problems, which include diabetes mellitus, hypertension, hyperlipidemia, chronic kidney disease, atrial fibrillation, etc. 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 Swelling of right lower extremity Venous stasis dermatitis of right lower extremity Home Medications acetaminophen 325 mg tablet (Aphen) 325 mg PO Q6H PRN pain 03/25/23 [History Last Taken Unknown] bumetanide 2 mg tablet 2 mg PO BID 03/25/23 [History Last Taken Unknown] cholecalciferol (vitamin D3) 25 mcg (1,000 unit) capsule 25 mcg PO DAILY 03/25/23 [History Last Taken Unknown] cyanocobalamin (vitamin B-12) 1,000 mcg/mL injection kit 100 mcg IM QMONTH 03/25/23 [History Last Taken Unknown] docusate sodium 100 mg tablet (Docuprene) 100 mg PO DAILY 03/25/23 [History Last Taken Unknown] ferrous sulfate 325 mg (65 mg iron) tablet (FeroSul) 325 mg PO DAILY 03/25/23 [History Last Taken Unknown] metoprolol succinate 50 mg tablet,extended release 24 hr (Toprol XL) 50 mg PO BID 03/25/23 [History Last Taken Unknown] pantoprazole 40 mg tablet,delayed release 40 mg PO DAILY 03/25/23 [History Last Taken Unknown] sertraline 50 mg tablet (Zoloft) 50 mg PO DAILY 03/25/23 [History Last Taken Unknown] simvastatin 20 mg tablet 20 mg PO QHS 03/25/23 [History Last Taken Unknown] sitagliptin phosphate 25 mg tablet (Januvia) 25 mg PO DAILY 03/25/23 [History Last Taken Unknown] warfarin 2.5 mg tablet (Jantoven) 2.5 mg PO DAILY 03/25/23 [History Last Taken Unknown] Allergy/AdvReac Type Severity Reaction Status Date / Time No Known Allergies Allergy Verified 03/25/23 10:28 Surgical History History of hysterectomy Social History Smoking Status: Never smoker Vital Signs Vital Signs Vital Signs: 04/29/23 09:16 Temperature Source Temporal Pulse Rate 63 Respiratory Rate 18 Blood Pressure 109/63 Blood Pressure Mean 78 Blood Pressure Source Monitor Blood Pressure Position Sitting Blood Pressure Location Right Arm Weight Weight: 310 lb Body Mass Index (BMI) 44.4 Physical Exam Const alert, oriented x3, no apparent distress and well nourished Constitutional Narrative: The patient is morbidly obese, with a BMI of 44.4. General Appearance: cooperative, comfortable, well kempt and well developed Orientation / Consciousness: awake, oriented to person, oriented to place and oriented to time HEENT normocephalic, head/scalp atraumatic and hearing grossly normal bilaterally Head and Scalp: normal to inspection, normocephalic and atraumatic External Ear: external ears normal Eyes PERRL and EOMs intact bilaterally General Eye: normal appearance of both eyes Resp normal respiratory effort, normal air movement, no retractions and no use of accessory muscles Effort and Inspection: able to speak in complete sentences Extremity no calf tenderness General Extremity: Negative for clubbing or cyanosis Skin Wound Narrative: Mild swelling and edema are noted in the lower extremities bilaterally. Hyperpigmentation and lipodermatosclerosis are noted in the gaiter areas bilaterally. A scaly venous stasis dermatitis is noted in the gaiter areas bilaterally, which is improving. Several superficial excoriations which were noted in the right supramalleolar area have resolved. An open wound is noted on the right knee. There is no sign of infection or cellulitis. Dimensions are documented elsewhere. The wound is smaller than noted previously. The base of the wound appears generally pink and healthy in appearance, with a small amount of bioburden. Minimal undermining is noted. Neuro oriented x3, CN's II-XII intact bilaterally and moves all extremities Sensorium / Orientation: awake, alert, oriented to person, oriented to place and oriented to time Psych Appearance: grossly normal and appropriate Attitude: calm Activity / Motor Behavior: appropriate eye contact Speech: normal speech Mood & Affect: euthymic mood Thought Process: normal thought process Thought Content: normal thought content Attention / Concentration: attention grossly intact Debridement Note Debridement Note Wound debrided: Right knee Laterality: Right Type of Debridement: Excisional debridement Anesthesia Used: 5% Lidocaine Gel Depth: Down to and including healthy tissue and in the subcutaneous layer Percentage of wound debrided: 100 Instrument Used: 5mm curette Tissue Removed: Bioburden and nonviable tissue Severity: Fat Layer Exposed Amount of bleeding with debridement: Mild Bleeding Controlled with: Compression and gauze Patient tolerated procedure: Patient tolerated procedure well Post-Debridement Measurements and Additional Note: Post-Debridement Measurements/Treatment - Nurse 1 - General Ulcer Assessment Start: 04/29/23 09:13 Freq: Status: Active Protocol: SUE Activity Type Activity Date Activity User E-sign Co-sign Detail Recorded Client Recorded Date Recorded By Document 04/29/23 09:16 [place] Desktop 04/29/23 09:27 [place] 04/29/23 09:16 - Today's Visit Information Type of service Follow-up Visit (Physician/[employer] ) Arrival Mode Ambulatory, Walker Accompanied by self Patient Identification Verified (Name & Yes ) Safety Precautions Fall Prevention Height and Weight Body Mass Index (BMI) 44.4 BMI Classification Obese Vital Signs Temperature Source Temporal Pulse Rate (60-100) 63 Pulse Location Monitor Respiratory Rate (12-18) 18 Respiratory rate source Observation Blood Pressure (90/60-120/80) 109/63 Blood Pressure Mean 78 Source Monitor Position Sitting Blood Pressure Location Right Arm Pain Scale: 0-10 Numeric Is Patient Pain Free? Yes - Nurse 1 - General Ulcer Measurement Start: 04/29/23 09:13 Freq: Status: Active Protocol: Activity Type Activity Date Activity User E-sign Co-sign Detail Recorded Client Recorded Date Recorded By Document 04/29/23 09:16 [place] Desktop 04/29/23 09:27 [place] 04/29/23 09:16 Wound Center Nurse 1 1. R knee -Current Size (cm) - Length 0.5 -Current Size (cm) - Width 1.5 -Current Size (cm) - Depth 0.3 -Total Square Cm 0.75 -Photo Taken No -Undermining/Tunneling No -Exudate Amt Medium -Exudate Type Serosanguineous -Wound Margin Thickened & Rolled Under -Granulation Amt Large (67-100%) -Granulation Quality Pale,[place] -Necrosis Amt Small (1-33%) -Necrotic Tissue Type Adherent Slough -Texture (Cristal-wound Skin Appearance) Assessed -Moisture (Cristal-wound Skin Appearance) Assessed -Color (Cristal-wound Skin Appearance) Assessed -Temperature (Cristal-wound Skin No Abnormality Appearance) (Pt Warm) -Tenderness on Palpation (Cristal-wound No Skin Appearance) -Ulcer Cleansing Soap and Water -Foul Odor after Cleansing No -Anesthetic Used 5% Lidocaine Gel Right Calf (cm) 45 Right Ankle (cm) 24 Left Calf (cm) 43 Left Ankle (cm) 24 Assessment/Plan Assessment/Plan (1) 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: CODE(S): L97.112 - 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 (2) Chronic venous insufficiency: CODE(S): I87.2 - Venous insufficiency (chronic) (peripheral) (3) Venous stasis dermatitis of right lower extremity: CODE(S): I87.2 - Venous insufficiency (chronic) (peripheral) (4) Swelling of right lower extremity: CODE(S): M79.89 - Other specified soft tissue disorders (5) Edema of right lower leg: CODE(S): R60.0 - Localized edema (6) Lipodermatosclerosis: CODE(S): M79.3 - Panniculitis, unspecified (7) Hypertension: CODE(S): I10 - Essential (primary) hypertension (8) Diabetes mellitus: CODE(S): E11.9 - Type 2 diabetes mellitus without complications (9) Hyperlipidemia associated with type 2 diabetes mellitus: CODE(S): E11.69 - Type 2 diabetes mellitus with other specified complica tion; E78.5 - Hyperlipidemia, unspecified (10) Atrial fibrillation: CODE(S): I48.91 - Unspecified atrial fibrillation (11) Chronic kidney disease, stage IV (severe): CODE(S): N18.4 - Chronic kidney disease, stage 4 (severe) (12) Iron deficiency anemia: CODE(S): D50.9 - Iron deficiency anemia, unspecified (13) Aortic stenosis: CODE(S): I35.0 - Nonrheumatic aortic (valve) stenosis (14) B12 deficiency: CODE(S): E53.8 - Deficiency of other specified B group vitamins (15) Depression: CODE(S): F32.A - Depression, unspecified (16) History of hysterectomy: CODE(S): Z90.710 - Acquired absence of both cervix and uterus (17) Morbid obesity with BMI of 40.0-44.9, adult: CODE(S): E66.01 - Morbid (severe) obesity due to excess calories; Z68.41 - Body mass index [BMI] 40.0-44.9, adult PLAN: Plan This is an 87-year-old obese diabetic female who presented with a traumatic wound on the right knee. The wound had been present for approximately 2 months, though the patient cannot remember specifically when the injury occurred. Additionally, she presented with swelling, edema, lipodermatosclerosis, and other skin changes in the lower extremities to suggest the presence of chronic venous insufficiency and venous stasis disease. With respect to the wound of the right knee, we are to continue the use of Promogran (or Lana) which will be applied topically on a daily basis. We are also to continue the use of Unna boots bilaterally, which will be changed twice weekly. Because of the unavailability of Unna boots, we will substitute the use of a 3M 2 layer compression wrap. The patient has been encouraged to ambulate as much as possible. However, significant enhancement of activity is unlikely. Prolonged idle sitting has been discouraged. The patient is to continue sleeping on a flat mattress at night. She is to elevate her legs during daytime hours as well. Elevation is to be to heart level, or higher. Weight loss has also been recommended. The patient has been advised to optimize her nutritional intake, as well as optimizing her glycemic control. An attempt will be made to obtain pneumatic mechanical compression pumps for the patient's use. The patient is to return in 1 week for reassessment. Total time: 24 minutes
[2023-05-06 09:20] VITALS: BP 99/72; PULSE 113; RESP 16; TEMP 35.9; BMI 44.4
--- NOTE | 2023-05-06 10:00 | HP.PCM_ITS ---
History of Present Illness Date of Service: 05/06/23 Chief Complaint: Traumatic wound of the right knee History of Wound: This is an 87-year-old obese, diabetic female who is a resident of [facility] in [place], [place]. The patient is somewhat forgetful and nonspecific about the history of the traumatic wound on her right knee. It appears as though she fell approximately 2 months ago, sustaining an open wound on her right knee. The staff at her independent living facility only recently discovered her wound, and referred her for further evaluation and treatment. Recent management had included the use of saline wet-to-dry dressings on a daily basis. The patient claims to sleep flat at night. Ambulation is somewhat limited, and she requires the use of a walker. She sits a great deal of each day, playing bridge. The patient has multiple pre-existing medical problems, which include diabetes mellitus, hypertension, hyperlipidemia, chronic kidney disease, atrial fibrillation, etc. 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 Swelling of right lower extremity Venous stasis dermatitis of right lower extremity Home Medications acetaminophen 325 mg tablet (Aphen) 325 mg PO Q6H PRN pain 03/25/23 [History Last Taken Unknown] bumetanide 2 mg tablet 2 mg PO BID 03/25/23 [History Last Taken Unknown] cholecalciferol (vitamin D3) 25 mcg (1,000 unit) capsule 25 mcg PO DAILY 03/25/23 [History Last Taken Unknown] cyanocobalamin (vitamin B-12) 1,000 mcg/mL injection kit 100 mcg IM QMONTH 03/25/23 [History Last Taken Unknown] docusate sodium 100 mg tablet (Docuprene) 100 mg PO DAILY 03/25/23 [History Last Taken Unknown] ferrous sulfate 325 mg (65 mg iron) tablet (FeroSul) 325 mg PO DAILY 03/25/23 [History Last Taken Unknown] metoprolol succinate 50 mg tablet,extended release 24 hr (Toprol XL) 50 mg PO BID 03/25/23 [History Last Taken Unknown] pantoprazole 40 mg tablet,delayed release 40 mg PO DAILY 03/25/23 [History Last Taken Unknown] sertraline 50 mg tablet (Zoloft) 50 mg PO DAILY 03/25/23 [History Last Taken Unknown] simvastatin 20 mg tablet 20 mg PO QHS 03/25/23 [History Last Taken Unknown] sitagliptin phosphate 25 mg tablet (Januvia) 25 mg PO DAILY 03/25/23 [History Last Taken Unknown] warfarin 2.5 mg tablet (Jantoven) 2.5 mg PO DAILY 03/25/23 [History Last Taken Unknown] Allergy/AdvReac Type Severity Reaction Status Date / Time No Known Allergies Allergy Verified 03/25/23 10:28 Surgical History History of hysterectomy Social History Smoking Status: Never smoker Vital Signs Vital Signs Vital Signs: 05/06/23 09:20 Temperature 96.6 F L Temperature Source Temporal Pulse Rate 113 H Respiratory Rate 16 Blood Pressure 99/72 Blood Pressure Mean 81 Blood Pressure Source Monitor Blood Pressure Position Sitting Blood Pressure Location Left Forearm Oxygen Delivery Method Room Air Weight Weight: 310 lb Body Mass Index (BMI) 44.4 Physical Exam Const alert, oriented x3, no apparent distress and well nourished Constitutional Narrative: The patient is morbidly obese, with a BMI of 44.4. General Appearance: cooperative, comfortable, well kempt and well developed Orientation / Consciousness: awake, oriented to person, oriented to place and oriented to time HEENT normocephalic, head/scalp atraumatic and hearing grossly normal bilaterally Head and Scalp: normal to inspection, normocephalic and atraumatic External Ear: external ears normal Eyes PERRL and EOMs intact bilaterally General Eye: normal appearance of both eyes Resp normal respiratory effort, normal air movement, no retractions and no use of accessory muscles Effort and Inspection: able to speak in complete sentences Extremity no calf tenderness General Extremity: Negative for clubbing or cyanosis Skin Wound Narrative: Mild swelling and edema are noted in the lower extremities bilaterally. Hyperpigmentation and lipodermatosclerosis are noted in the gaiter areas bilaterally. The scaly, venous stasis dermatitis in the gaiter areas is much improved. The superficial excoriations continue to improve in the right supramalleolar area. An open wound persists on the right knee. There is no sign of infection or cellulitis. Dimensions are documented elsewhere. The wound is smaller than noted previously, and continues to diminish in size. The base of the wound appears generally pink and healthy in appearance, with a small amount of bioburden. Minimal undermining is noted. Neuro oriented x3, CN's II-XII intact bilaterally and moves all extremities Sensorium / Orientation: awake, alert, oriented to person, oriented to place and oriented to time Psych Appearance: grossly normal and appropriate Attitude: calm Activity / Motor Behavior: appropriate eye contact Speech: normal speech Mood & Affect: euthymic mood Thought Process: normal thought process Thought Content: normal thought content Attention / Concentration: attention grossly intact Debridement Note Debridement Note Wound debrided: Right knee Laterality: Right Type of Debridement: Excisional debridement Anesthesia Used: 5% Lidocaine Gel Depth: Down to and including healthy tissue and in the subcutaneous layer Percentage of wound debrided: 100 Instrument Used: 3mm curette Tissue Removed: Bioburden and nonviable tissue Severity: Fat Layer Exposed Amount of bleeding with debridement: Mild Bleeding Controlled with: Compression and gauze Patient tolerated procedure: Patient tolerated procedure well Post-Debridement Measurements and Additional Note: Post-Debridement Measurements/Treatment - Nurse 1 - General Ulcer Assessment Start: 04/29/23 09:13 Freq: Status: Active Protocol: REBEKA.LOWEXT Activity Type Activity Date Activity User E-sign Co-sign Detail Recorded Client Recorded Date Recorded By Document 04/29/23 09:16 MT Desktop 04/29/23 09:27 MT Document 05/06/23 09:20 KW Desktop 05/06/23 09:35 KW 04/29/23 05/06/23 09:16 09:20 - Today's Visit Information Type of service Follow-up Visit Follow-up Visit (Physician/COREMAKER APPRENTICE (Physician/COREMAKER APPRENTICE ) ) Arrival Mode Ambulatory, Ambulatory, Walker Walker Accompanied by self Patient Identification Verified (Name & Yes Yes ) Safety Precautions Fall Prevention Height and Weight Body Mass Index (BMI) 44.4 44.4 BMI Classification Obese Obese Vital Signs Temperature (97.8 F-99.1 F) 96.6 F L Temperature Source Temporal Temporal Pulse Rate (60-100) 63 113 H Pulse Location Monitor Monitor Respiratory Rate (12-18) 18 16 Respiratory rate source Observation Observation Oxygen Delivery Method Room Air Blood Pressure (90/60-120/80) 109/63 99/72 Blood Pressure Mean 78 81 Source Monitor Monitor Position Sitting Sitting Blood Pressure Location Right Arm Left Forearm History Since Last Visit- (Skip if this is Patient's initial visit) Have you changed medications since your No last visit? Any new allergies or adverse reactions No Had a fall/change in ADL's that may No increase risk of falls Signs or symptoms of abuse and/or No neglect since last visit Have you been in the hospital since your No last visit? Has dressing in place as prescribed Yes Has compression in place as prescribed Yes Has offloadiing in place as prescribed N/A Experienced any changes in pain level or No management Left Footwear Regular Shoe Right Footwear Regular Shoe Pain Scale: 0-10 Numeric Is Patient Pain Free? Yes Yes WC - Nurse 1 - General Ulcer Measurement Start: 04/29/23 09:13 Freq: Status: Active Protocol: Activity Type Activity Date Activity User E-sign Co-sign Detail Recorded Client Recorded Date Recorded By Document 04/29/23 09:16 MT Desktop 04/29/23 09:27 MT Document 05/06/23 09:20 KW Desktop 05/06/23 09:35 KW 04/29/23 05/06/23 09:16 09:20 Wound Center Nurse 1 1. R knee -Current Size (cm) - Length 0.5 0.3 -Current Size (cm) - Width 1.5 1 -Current Size (cm) - Depth 0.3 0.1 -Total Square Cm 0.75 0.3 -Date of Last Picture (Recall this 05/06/23 field) -Photo Taken No Yes -Undermining/Tunneling No -Exudate Amt Medium Small -Exudate Type Serosanguineous Serosanguineous -Wound Margin Thickened & Distinct, Rolled Under Outline Attached -Granulation Amt Large (67-100%) Large (67-100%) -Granulation Quality Pale,Nambe Red -Necrosis Amt Small (1-33%) -Necrotic Tissue Type Adherent Slough -Texture (Cristal-wound Skin Appearance) Assessed Assessed -Moisture (Cristal-wound Skin Appearance) Assessed Assessed -Color (Cristal-wound Skin Appearance) Assessed Assessed -Temperature (Cristal-wound Skin No Abnormality No Abnormality Appearance) (Pt Warm) (Pt Warm) -Tenderness on Palpation (Cristal-wound No Skin Appearance) -Ulcer Cleansing Soap and Water Rinsed/ Irrigated with Saline -Foul Odor after Cleansing No -Anesthetic Used 5% Lidocaine 5% Lidocaine Gel Gel Right Calf (cm) 45 44.5 Right Ankle (cm) 24 23.7 Left Calf (cm) 43 45.5 Left Ankle (cm) 24 23.5 WC - Nurse 2 - General Ulcer CM Notes Start: 04/29/23 09:13 Freq: Status: Active Protocol: Activity Type Activity Date Activity User E-sign Co-sign Detail Recorded Client Recorded Date Recorded By Document 04/29/23 12:11 PL [id number] 04/29/23 12:11 PL 04/29/23 12:11 Wound Center Nurse 2 1. R knee -Time 09:32 -Correct Patient Yes -Correct Side, Site, Position Yes -Correct Procedure Yes -Procedure Performed Yes -Type of Procedure Debridement -Clinical Debridement Subcutaneous -Tissue Removed Subcutaneous -Post Debridement (cm) - Length 0.5 -Post Debridement (cm) - Width 1.5 -Post Debridement (cm) - Depth 0.3 -Total Square (Post) (cm) 0.75 -Area of Debridement (cm) - Length 0.5 -Area of Debridement (cm) - Width 1.5 -Total Square (Area) (cm) 0.75 -Tunneling No -Undermining/Tunneling No -Circular Undermining No -Wound/Ulcer Outcome Not Healed -Ulcer Cleansing Rinsed/ Irrigated with Saline -Foul Odor after Cleansing No -Bioengineered Tissue No -Bleeding Controlled with Pressure -Treatment Response Procedure Tolerated Well -Debridement - Subq, 1st 20sq cm Yes Pain Scale: 0-10 Numeric Is Patient Pain Free? Yes - Nurse 3 - General Ulcer D/C NN Start: 04/29/23 09:13 Freq: Status: Active Protocol: Activity Type Activity Date Activity User E-sign Co-sign Detail Recorded Client Recorded Date Recorded By Document 04/29/23 09:47 KW Desktop 04/29/23 09:48 KW Document 05/06/23 09:46 DL Desktop 05/06/23 09:48 DL 04/29/23 05/06/23 09:47 09:46 Wound Care Center Nurse 3 1. R knee -Ulcer Cleansing Rinsed/ Irrigated with Saline -Foul Odor after Cleansing No -Primary Dressing Applied Promogran Promogran Lana Matter -Primary Dressing Covered/Secured with Dry Gauze & Dry Gauze, Roll Gauze, Secured with Secured with Tape Tape -Promogran 1 -Promogran Lana Matter 1 ble -Multi-Layered Wrap Application Multi-Layer Multi-Layer Comp - Bilat ($ Comp - Bilat ($ ) ) Treatment Response Procedure Tolerated Well Pain Scale: 0-10 Numeric Is Patient Pain Free? 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 (2) Chronic venous insufficiency: CODE(S): I87.2 - Venous insufficiency (chronic) (peripheral) (3) Venous stasis dermatitis of right lower extremity: CODE(S): I87.2 - Venous insufficiency (chronic) (peripheral) (4) Swelling of right lower extremity: CODE(S): M79.89 - Other specified soft tissue disorders (5) Edema of right lower leg: CODE(S): R60.0 - Localized edema (6) Lipodermatosclerosis: CODE(S): M79.3 - Panniculitis, unspecified (7) Hypertension: CODE(S): I10 - Essential (primary) hypertension (8) Diabetes mellitus: CODE(S): E11.9 - Type 2 diabetes mellitus without complications (9) Hyperlipidemia associated with type 2 diabetes mellitus: CODE(S): E11.69 - Type 2 diabetes mellitus with other specified complication; E78.5 - Hyperlipidemia, unspecified (10) Atrial fibrillation: CODE(S): I48.91 - Unspecified atrial fibrillation (11) Chronic kidney disease, stage IV (severe): CODE(S): N18.4 - Chronic kidney disease, stage 4 (severe) (12) Iron deficiency anemia: CODE(S): D50.9 - Iron deficiency anemia, unspecified (13) Aortic stenosis: CODE(S): I35.0 - Nonrheumatic aortic (valve) stenosis (14) B12 deficiency: CODE(S): E53.8 - Deficiency of other specified B group vitamins (15) Depression: CODE(S): F32.A - Depression, unspecified (16) History of hysterectomy: CODE(S): Z90.710 - Acquired absence of both cervix and uterus (17) Morbid obesity with BMI of 40.0-44.9, adult: CODE(S): E66.01 - Morbid (severe) obesity due to excess calories; Z68.41 - Body mass index [BMI] 40.0-44.9, adult PLAN: Plan This is an 87-year-old obese diabetic female who presented with a traumatic wound on the right knee. The wound had been present for approximately 2 months, though the patient cannot remember specifically when the injury occurred. Additionally, she presented with swelling, edema, lipodermatosclerosis, and other skin changes in the lower extremities to suggest the presence of chronic venous insufficiency and venous stasis disease. With respect to the wound of the right knee, we are to continue the use of Promogran, which will be applied topically on a daily basis. We are also to continue compression to the lower extremities by means of a 3M 2 layer compression wrap, which will be changed twice weekly. The patient has been encouraged to ambulate as much as possible. However, significant enhancement of activity is unlikely. Prolonged idle sitting has been discouraged. The patient is to continue sleeping on a flat mattress at night. She is to elevate her legs during daytime hours as well. Elevation is to be to heart level, or higher. Weight loss has also been recommended. The patient has been advised to optimize her nutritional intake, as well as optimizing her glycemic control. An attempt will be made to obtain pneumatic mechanical compression pumps for the patient's use. The patient is to return in 1 week for reassessment. Total time: 22 minutes
[2023-05-13 09:28] VITALS: BP 101/64; PULSE 113; RESP 16; TEMP 36.1; BMI 44.4
--- NOTE | 2023-05-13 10:28 | HP.PCM_ITS ---
History of Present Illness Date of Service: 05/13/23 Chief Complaint: Traumatic wound of the right knee History of Wound: This is an 87-year-old obese, diabetic female who is a resident of [facility] in [place], [place]. The patient is somewhat forgetful and nonspecific about the history of the traumatic wound on her right knee. It appears as though she fell approximately 2 months ago, sustaining an open wound on her right knee. The staff at her independent living facility only recently discovered her wound, and referred her for further evaluation and treatment. Recent management had included the use of saline wet-to-dry dressings on a daily basis. The patient claims to sleep flat at night. Ambulation is somewhat limited, and she requires the use of a walker. She sits a great deal of each day, playing bridge. The patient has multiple pre-existing medical problems, which include diabetes mellitus, hypertension, hyperlipidemia, chronic kidney disease, atrial fibrillation, etc. 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 Swelling of right lower extremity Venous stasis dermatitis of right lower extremity Home Medications acetaminophen 325 mg tablet (Aphen) 325 mg PO Q6H PRN pain 03/25/23 [History Last Taken Unknown] bumetanide 2 mg tablet 2 mg PO BID 03/25/23 [History Last Taken Unknown] cholecalciferol (vitamin D3) 25 mcg (1,000 unit) capsule 25 mcg PO DAILY 03/25/23 [History Last Taken Unknown] cyanocobalamin (vitamin B-12) 1,000 mcg/mL injection kit 100 mcg IM QMONTH 03/25/23 [History Last Taken Unknown] docusate sodium 100 mg tablet (Docuprene) 100 mg PO DAILY 03/25/23 [History Last Taken Unknown] ferrous sulfate 325 mg (65 mg iron) tablet (FeroSul) 325 mg PO DAILY 03/25/23 [History Last Taken Unknown] metoprolol succinate 50 mg tablet,extended release 24 hr (Toprol XL) 50 mg PO BID 03/25/23 [History Last Taken Unknown] pantoprazole 40 mg tablet,delayed release 40 mg PO DAILY 03/25/23 [History Last Taken Unknown] sertraline 50 mg tablet (Zoloft) 50 mg PO DAILY 03/25/23 [History Last Taken Unknown] simvastatin 20 mg tablet 20 mg PO QHS 03/25/23 [History Last Taken Unknown] sitagliptin phosphate 25 mg tablet (Januvia) 25 mg PO DAILY 03/25/23 [History Last Taken Unknown] warfarin 2.5 mg tablet (Jantoven) 2.5 mg PO DAILY 03/25/23 [History Last Taken Unknown] Allergy/AdvReac Type Severity Reaction Status Date / Time No Known Allergies Allergy Verified 03/25/23 10:28 Surgical History History of hysterectomy Social History Smoking Status: Never smoker Vital Signs Vital Signs Vital Signs: 05/13/23 09:28 Temperature 96.9 F L Temperature Source Temporal Pulse Rate 113 H Respiratory Rate 16 Blood Pressure 101/64 Blood Pressure Mean 76 Blood Pressure Source Monitor Blood Pressure Position Semi-Fowlers Blood Pressure Location Left Arm Oxygen Delivery Method Room Air Weight Weight: 310 lb Body Mass Index (BMI) 44.4 Physical Exam Const alert, oriented x3, no apparent distress and well nourished Constitutional Narrative: The patient is morbidly obese, with a BMI of 44.4. General Appearance: cooperative, comfortable, well kempt and well developed Orientation / Consciousness: awake, oriented to person, oriented to place and oriented to time HEENT normocephalic, head/scalp atraumatic and hearing grossly normal bilaterally Head and Scalp: normal to inspection, normocephalic and atraumatic External Ear: external ears normal Eyes PERRL and EOMs intact bilaterally General Eye: normal appearance of both eyes Resp normal respiratory effort, normal air movement, no retractions and no use of accessory muscles Effort and Inspection: able to speak in complete sentences Extremity no calf tenderness General Extremity: Negative for clubbing or cyanosis Skin Wound Narrative: Mild swelling and edema are noted in the lower extremities bilaterally. Hyperpigmentation and lipodermatosclerosis are noted in the gaiter areas bilaterally. The scaly, venous stasis dermatitis in the gaiter areas is much improved. The superficial excoriations continue to improve in the right supramalleolar area. An open wound persists on the right knee. It is much smaller in size, with evidence of epithelialization. Dimensions are documented elsewhere. The wound continues to diminish in size. There is no sign of infection or cellulitis. The base of the wound appears generally pink and healthy in appearance, with a small amount of bioburden. No undermining is noted. Neuro oriented x3, CN's II-XII intact bilaterally, moves all extremities and no focal motor deficits Sensorium / Orientation: awake, alert, oriented to person, oriented to place and oriented to time Psych Appearance: grossly normal and appropriate Attitude: calm Activity / Motor Behavior: appropriate eye contact Speech: normal speech Mood & Affect: euthymic mood Thought Process: normal thought process Thought Content: normal thought content Attention / Concentration: attention grossly intact Debridement Note Debridement Note Wound debrided: Right knee Laterality: Right Type of Debridement: Excisional debridement Anesthesia Used: 5% Lidocaine Gel Depth: Down to and including healthy tissue and in the subcutaneous layer Percentage of wound debrided: 100 Instrument Used: 3mm curette Tissue Removed: Bioburden Severity: Fat Layer Exposed Amount of bleeding with debridement: Mild Bleeding Controlled with: Compression and gauze Patient tolerated procedure: Patient tolerated procedure well Post-Debridement Measurements and Additional Note: Post-Debridement Measurements/Treatment - Nurse 1 - General Ulcer Assessment Start: 04/29/23 09:13 Freq: Status: Active Protocol: [email or web address] Activity Type Activity Date Activity User E-sign Co-sign Detail Recorded Client Recorded Date Recorded By Document 04/29/23 09:16 MT Desktop 04/29/23 09:27 MT Document 05/06/23 09:20 KW Desktop 05/06/23 09:35 KW Document 05/13/23 09:28 KW Desktop 05/13/23 09:37 KW 04/29/23 05/06/23 05/13/23 09:16 09:20 09:28 - Today's Visit Information Type of service Follow-up Visit Follow-up Visit Follow-up Visit (Physician/[employer] WEB DEVELOPER (Physician/J[employer] END WEB DEVELOPER (Physician/JAVA FR[employer] END WEB DEVELOPER ) ) ) Arrival Mode Ambulatory, Ambulatory, Ambulatory, Walker Walker Walker Accompanied by self Patient Identification Verified (Name & Yes Yes Yes ) Safety Precautions Fall Prevention Height and Weight Body Mass Index (BMI) 44.4 44.4 44.4 BMI Classification Obese Obese Obese Vital Signs Temperature (97.8 F-99.1 F) 96.6 F L 96.9 F L Temperature Source Temporal Temporal Temporal Pulse Rate (60-100) 63 113 H 113 H Pulse Location Monitor Monitor Monitor Respiratory Rate (12-18) 18 16 16 Respiratory rate source Observation Observation Observation Oxygen Delivery Method Room Air Room Air Blood Pressure (90/60-120/80) 109/63 99/72 101/64 Blood Pressure Mean 78 81 76 Source Monitor Monitor Monitor Position Sitting Sitting Semi-Fowlers Blood Pressure Location Right Arm Left Forearm Left Arm History Since Last Visit- (Skip if this is Patient's initial visit) Have you changed medications since your No No last visit? Any new allergies or adverse reactions No No Had a fall/change in ADL's that may No No increase risk of falls Signs or symptoms of abuse and/or No neglect since last visit Have you been in the hospital since your No last visit? Has dressing in place as prescribed Yes Has compression in place as prescribed Yes Has offloadiing in place as prescribed N/A Experienced any changes in pain level or No management Left Footwear Regular Shoe Right Footwear Regular Shoe Pain Scale: 0-10 Numeric Is Patient Pain Free? Yes Yes Yes WC - Nurse 1 - General Ulcer Measurement Start: 04/29/23 09:13 Freq: Status: Active Protocol: Activity Type Activity Date Activity User E-sign Co-sign Detail Recorded Client Recorded Date Recorded By Document 04/29/23 09:16 MT [email or web address] 04/29/23 09:27 MT Document 05/06/23 09:20 KW Desktop 05/06/23 09:35 KW Document 05/13/23 09:28 KW Desktop 05/13/23 09:37 KW 04/29/23 05/06/23 05/13/23 09:16 09:20 09:28 Wound Center Nurse 1 1. R knee -Current Size (cm) - Length 0.5 0.3 0.1 -Current Size (cm) - Width 1.5 1 0.1 -Current Size (cm) - Depth 0.3 0.1 0.1 -Total Square Cm 0.75 0.3 0.01 -Date of Last Picture (Recall this 05/06/23 field) -Photo Taken No Yes -Undermining/Tunneling No -Exudate Amt Medium Small -Exudate Type Serosanguineous Serosanguineous -Wound Margin Thickened & Distinct, Rolled Under Outline Attached -Granulation Amt Large (67-100%) Large (67-100%) -Granulation Quality Pale,[place] Red -Necrosis Amt Small (1-33%) -Necrotic Tissue Type Adherent Slough -Texture (Cristal-wound Skin Appearance) Assessed Assessed Assessed -Moisture (Cristal-wound Skin Appearance) Assessed Assessed Assessed -Color (Cristal-wound Skin Appearance) Assessed Assessed Assessed -Temperature (Cristal-wound Skin No Abnormality No Abnormality Appearance) (Pt Warm) (Pt Warm) -Tenderness on Palpation (Cristal-wound No Skin Appearance) -Ulcer Cleansing Soap and Water Rinsed/ Soap and Water Irrigated with Saline -Foul Odor after Cleansing No -Anesthetic Used 5% Lidocaine 5% Lidocaine 5% Lidocaine Gel Gel Gel -Wound Comment(s) ulcer is scabbed over Right Calf (cm) 45 44.5 52.3 Right Ankle (cm) 24 23.7 24.2 Left Calf (cm) 43 45.5 51 Left Ankle (cm) 24 23.5 25 WC - Nurse 2 - General Ulcer CM Notes Start: 04/29/23 09:13 Freq: Status: Active Protocol: Activity Type Activity Date Activity User E-sign Co-sign Detail Recorded Client Recorded Date Recorded By Document 04/29/23 12:11 PL [id number] 04/29/23 12:11 PL Document 05/06/23 11:57 PL [id number] 05/06/23 11:59 PL 04/29/23 05/06/23 12:11 11:57 Wound Center Nurse 2 1. R knee -Time 09:32 09:41 -Correct Patient Yes Yes -Correct Side, Site, Position Yes Yes -Correct Procedure Yes Yes -Procedure Performed Yes Yes -Type of Procedure Debridement Debridement -Clinical Debridement Subcutaneous Subcutaneous -Tissue Removed Subcutaneous Subcutaneous -Post Debridement (cm) - Length 0.5 0.3 -Post Debridement (cm) - Width 1.5 1.0 -Post Debridement (cm) - Depth 0.3 0.1 -Total Square (Post) (cm) 0.75 0.30 -Area of Debridement (cm) - Length 0.5 0.3 -Area of Debridement (cm) - Width 1.5 1.0 -Total Square (Area) (cm) 0.75 0.30 -Tunneling No No -Undermining/Tunneling No No -Circular Undermining No No -Wound/Ulcer Outcome Not Healed -Ulcer Cleansing Rinsed/ Rinsed/ Irrigated with Irrigated with Saline Saline -Foul Odor after Cleansing No No -Bioengineered Tissue No No -Bleeding Controlled with Pressure Pressure -Treatment Response Procedure Procedure Tolerated Well Tolerated Well -Debridement - Subq, 1st 20sq cm Yes Yes Pain Scale: 0-10 Numeric Is Patient Pain Free? Yes Yes - Nurse 3 - General Ulcer D/C NN Start: 04/29/23 09:13 Freq: Status: Active Protocol: Activity Type Activity Date Activity User E-sign Co-sign Detail Recorded Client Recorded Date Recorded By Document 04/29/23 09:47 KW Desktop 04/29/23 09:48 KW Document 05/06/23 09:46 DL Desktop 05/06/23 09:48 DL Document 05/13/23 10:24 MT Desktop 05/13/23 10:27 MT 04/29/23 05/06/23 05/13/23 09:47 09:46 10:24 Wound Care Center Nurse 3 1. R knee -Ulcer Cleansing Rinsed/ Rinsed/ Irrigated with Irrigated with Saline Saline -Foul Odor after Cleansing No No -Negative Pressure Wound Therapy N/A -Primary Dressing Applied Promogran Promogran Mepilex Border Lana Matter -Primary Dressing Covered/Secured with Dry Gauze & Dry Gauze, Dry Gauze & Roll Gauze, Secured with Roll Gauze, Secured with Tape Secured with Tape Tape -Mepilex Border 4 -Promogran 1 -Promogran Lana Matter 1 ble -Lotion applied to leg before No compression wrap -Multi-Layered Wrap Application Multi-Layer Multi-Layer Multi-Layer Comp - Bilat ($ Comp - Bilat ($ Comp - Bilat ($ ) ) ) Treatment Response Procedure Tolerated Well Pain Scale: 0-10 Numeric Is Patient Pain Free? 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 (2) Chronic venous insufficiency: CODE(S): I87.2 - Venous insufficiency (chronic) (peripheral) (3) Venous stasis dermatitis of right lower extremity: CODE(S): I87.2 - Venous insufficiency (chronic) (peripheral) (4) Swelling of right lower extremity: CODE(S): M79.89 - Other specified soft tissue disorders (5) Edema of right lower leg: CODE(S): R60.0 - Localized edema (6) Lipodermatosclerosis: CODE(S): M79.3 - Panniculitis, unspecified (7) Hypertension: CODE(S): I10 - Essential (primary) hypertension (8) Diabetes mellitus: CODE(S): E11.9 - Type 2 diabetes mellitus without complications (9) Hyperlipidemia associated with type 2 diabetes mellitus: CODE(S): E11.69 - Type 2 diabetes mellitus with other specified complication; E78.5 - Hyperlipidemia, unspecified (10) Atrial fibrillation: CODE(S): I48.91 - Unspecified atrial fibrillation (11) Chronic kidney disease, stage IV (severe): CODE(S): N18.4 - Chronic kidney disease, stage 4 (severe) (12) Iron deficiency anemia: CODE(S): D50.9 - Iron deficiency anemia, unspecified (13) Aortic stenosis: CODE(S): I35.0 - Nonrheumatic aortic (valve) stenosis (14) B12 deficiency: CODE(S): E53.8 - Deficiency of other specified B group vitamins (15) Depression: CODE(S): F32.A - Depression, unspecified (16) History of hysterectomy: CODE(S): Z90.710 - Acquired absence of both cervix and uterus (17) Morbid obesity with BMI of 40.0-44.9, adult: CODE(S): E66.01 - Morbid (severe) obesity due to excess calories; Z68.41 - Body mass index [BMI] 40.0-44.9, adult PLAN: Plan This is an 87-year-old obese diabetic female who presented with a traumatic wound on the right knee. The wound had been present for approximately 2 months, though the patient cannot remember specifically when the injury occurred. Additionally, she presented with swelling, edema, lipodermatosclerosis, and other skin changes in the lower extremities to suggest the presence of chronic venous insufficiency and venous stasis disease. With respect to the wound of the right knee, we are to transition to the use of collagen hydrogel, which will be applied topically on a daily basis. We are also to continue compression to the lower extremities by means of a 3M, 2 layer compression wrap, which will be changed twice weekly. The patient has been encouraged to ambulate as much as possible. However, significant enhancement of activity is unlikely. Prolonged idle sitting has been discouraged. The patient is to continue sleeping on a flat mattress at night. She is to elevate her legs during daytime hours as well. Elevation is to be to heart level, or higher. Weight loss has also been recommended. The patient has been advised to optimize her nutritional intake, as well as optimizing her glycemic control. The use of pneumatic mechanical compression pumps will be considered. The patient is to return in 2 weeks for reassessment. Total time: 24 minutes
== END 2023-05-22 23:59 | disposition home or self-care (01) ==
LOC: WC 09:30
PROVIDERS: PCP Family Medicine; Referring Provider Family Medicine; Visit Provider Nurse Practitioner Family
DX: L97.112 Non-pressure chronic ulcer of right thigh with fat layer exposed (principal); N18.4 Chronic kidney disease, stage 4 (severe); I48.91 Unspecified atrial fibrillation; Z68.41 Body mass index [BMI] 40.0-44.9, adult; E66.01 Morbid (severe) obesity due to excess calories; E11.22 Type 2 diabetes mellitus with diabetic chronic kidney disease; E11.59 Type 2 diabetes mellitus with other circulatory complications; D50.9 Iron deficiency anemia, unspecified; F32.A Depression, unspecified; I12.9 Hypertensive chronic kidney disease with stage 1 through stage 4 chronic kidney disease, or unspecified chronic kidney disease; Z90.710 Acquired absence of both cervix and uterus; I35.0 Nonrheumatic aortic (valve) stenosis; E53.8 Deficiency of other specified B group vitamins; I87.2 Venous insufficiency (chronic) (peripheral); E78.5 Hyperlipidemia, unspecified; R60.0 Localized edema; M79.3 Panniculitis, unspecified
CPT/HCPCS: 11042; 29581

== ENCOUNTER 2023-06-02 09:45 | Outpatient (RCR) | payer MEDICARE, SELFPAY ==
[2023-05-23 00:24] VITALS: BP 101/64; PULSE 113; RESP 16; TEMP 36.1; BMI 44.4
[2023-06-02 09:57] VITALS: BP 99/72; PULSE 63; RESP 16; TEMP 36.2; BMI 44.4
--- NOTE | 2023-06-02 11:16 | PCM.WC.PN ---
History of Present Illness Date of Service: 06/02/23 Chief Complaint: Traumatic wound of the right knee History of Wound: This is an 87-year-old obese, diabetic female who is a resident of [facility] in [place], [place]. The patient is somewhat forgetful and nonspecific about the history of the traumatic wound on her right knee. It appears as though she fell approximately 2 months ago, sustaining an open wound on her right knee. The staff at her independent living facility only recently discovered her wound, and referred her for further evaluation and treatment. Recent management had included the use of saline wet-to-dry dressings on a daily basis. The patient claims to sleep flat at night. Ambulation is somewhat limited, and she requires the use of a walker. She sits a great deal of each day, playing bridge. The patient has multiple pre-existing medical problems, which include diabetes mellitus, hypertension, hyperlipidemia, chronic kidney disease, atrial fibrillation, etc. Progress of Wound: Courtesy visit for Dr. Levy. Her right knee ulcer is healed today. Her bilateral lower extremity edema is improved using the 3M 2 layer wraps. Subjective Subjective Patient states she is doing well. She states that she believes her ulcer is healed. Objective Data Objective Data Vital Signs: Vital Signs Temp Pulse Resp BP O2 Del Method 97.1 F L 63 16 99/72 Room Air 06/02/23 09:57 06/02/23 09:57 06/02/23 09:57 06/02/23 09:57 06/02/23 09:57 Oxygen Delivery Method Room Air Weight: 310 lb Body Mass Index (BMI) 44.4 Charges/Coding Visit Charges Office Visits / Consults: 59781 OV L3 Est 20min Physical Exam Const alert, oriented x3 and no apparent distress General Appearance: cooperative HEENT normocephalic Eyes General Eye: normal appearance of both eyes Resp normal respiratory effort and clear to auscultation bilaterally Effort and Inspection: able to speak in complete sentences Cardio regular rate and regular rhythm Extremity normal to inspection and normal capillary refill Skin Skin Narrative: Bilateral lower extremity edema is improving with the use of 3M 2 layer wraps. She has +1 edema. She continues to have hyperpigmentation. No dry or scaly skin as previously documented. Wound Narrative: Right knee ulcer is healed. There is fragile epithelialization present. Neuro CN's II-XII intact bilaterally Speech: speech normal Psych affect normal Debridement Note Debridement Note No debridement was completed: No debridement was completed today Post-Debridement Measurements and Additional Note: Post-Debridement Measurements/Treatment - Nurse 1 - General Ulcer Assessment Start: 06/02/23 09:56 Freq: Status: Active Protocol: SUE Activity Type Activity Date Activity User E-sign Co-sign Detail Recorded Client Recorded Date Recorded By Document 06/02/23 09:57 [facility] [employer] 06/02/23 09:59 [facility] 06/02/23 09:57 WC - Today's Visit Information Type of service Follow-up Visit (Physician/DIGITAL [employer]UTION ARCHITECT ) Arrival Mode Ambulatory, Walker Transfer Assistance None Patient Identification Verified (Name & Yes ) Patient Requires Transmission-Based No Precautions Height and Weight Body Mass Index (BMI) 44.4 BMI Classification Obese Vital Signs Temperature (97.8 F-99.1 F) 97.1 F L Temperature Source Temporal Pulse Rate (60-100) 63 Pulse Location Monitor Respiratory Rate (12-18) 16 Respiratory rate source Observation Oxygen Delivery Method Room Air Blood Pressure (90/60-120/80) 99/72 Blood Pressure Mean (mm Hg) 81 Source Monitor Position Sitting Blood Pressure Location Left Forearm Comment will update human resources admin History Since Last Visit- (Skip if this is Patient's initial visit) Have you changed medications since your No last visit? Any new allergies or adverse reactions No Had a fall/change in ADL's that may No increase risk of falls Signs or symptoms of abuse and/or No neglect since last visit Have you been in the hospital since your No last visit? Has dressing in place as prescribed No Has compression in place as prescribed No Has offloadiing in place as prescribed N/A Experienced any changes in pain level or No management Left Footwear Regular Shoe Right Footwear Regular Shoe Pain Scale: 0-10 Numeric Is Patient Pain Free? Yes - Nurse 1 - General Ulcer Measurement Start: 06/02/23 09:56 Freq: Status: Active Protocol: Activity Type Activity Date Activity User E-sign Co-sign Detail Recorded Client Recorded Date Recorded By Document 06/02/23 09:57 [facility] [employer] 06/02/23 09:59 [facility] 06/02/23 09:57 Wound Center Nurse 1 1. R knee -Combined with other wound No -Current Size (cm) - Length 0.1 -Current Size (cm) - Width 0.1 -Current Size (cm) - Depth 0.1 -Total Square Cm 0.01 -Date of Last Picture (Recall this 06/02/23 field) -Photo Taken Yes -Epithelialization Large 67-100% -Tunneling No -Undermining/Tunneling No -Circular Undermining No -Exudate Amt None Present -Wound Margin Distinct, Outline Attached -Slough/Fibrin Yes -Necrosis Amt Small (1-33%) -Necrotic Tissue Type Eschar -Texture (Cristal-wound Skin Appearance) Assessed, Scarring -Moisture (Cristal-wound Skin Appearance) Assessed,Dry/ Scaly -Color (Cristal-wound Skin Appearance) Assessed -Temperature (Cristal-wound Skin No Abnormality Appearance) (Pt Warm) -Tenderness on Palpation (Cristal-wound No Skin Appearance) -Ulcer Cleansing Soap and Water -Foul Odor after Cleansing No -Anesthetic Used 5% Lidocaine Gel Lower Limb Edema Present Yes Right Calf (cm) 45.7 Right Ankle (cm) 24.4 Left Calf (cm) 52 Left Ankle (cm) 24.1 WC - Nurse 2 - General Ulcer CM Notes Start: 06/02/23 09:56 Freq: Status: Active Protocol: Activity Type Activity Date Activity User E-sign Co-sign Detail Recorded Client Recorded Date Recorded By Document 06/02/23 10:19 [employer]aptop 06/02/23 10:27 06/02/23 10:19 Wound Center Nurse 2 1. R knee -Correct Patient No -Correct Side, Site, Position No -Correct Procedure No -Procedure Performed No -Post Debridement (cm) - Length 0 -Post Debridement (cm) - Width 0 -Post Debridement (cm) - Depth 0 -Total Square (Post) (cm) 0 -Area of Debridement (cm) - Length 0 -Area of Debridement (cm) - Width 0 -Total Square (Area) (cm) 0 Pain Scale: 0-10 Numeric Is Patient Pain Free? Yes REBEKA - Nurse 3 - General Ulcer D/C NN Start: 06/02/23 09:56 Freq: Status: Active Protocol: Activity Type Activity Date Activity User E-sign Co-sign Detail Recorded Client Recorded Date Recorded By Document 06/02/23 10:35 KW Desktop 06/02/23 10:36 KW 06/02/23 10:35 Wound Care Center Nurse 3 Right -Tubular Bandage Double Layer -Size of Tubigrip Used Size F -Size F ($) 2 Left -Tubular Bandage Double Layer -Size of Tubigrip Used Size F -Size F ($) 2 Pain Scale: 0-10 Numeric Is Patient Pain Free? 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 (2) Chronic venous insufficiency: CODE(S): I87.2 - Venous insufficiency (chronic) (peripheral) (3) Venous stasis dermatitis of right lower extremity: CODE(S): I87.2 - Venous insufficiency (chronic) (peripheral) (4) Swelling of right lower extremity: CODE(S): M79.89 - Other specified soft tissue disorders (5) Edema of right lower leg: CODE(S): R60.0 - Localized edema (6) Lipodermatosclerosis: CODE(S): M79.3 - Panniculitis, unspecified (7) Hypertension: CODE(S): I10 - Essential (primary) hypertension (8) Diabetes mellitus: CODE(S): E11.9 - Type 2 diabetes mellitus without complications (9) Hyperlipidemia associated with type 2 diabetes mellitus: CODE(S): E11.69 - Type 2 diabetes mellitus with other specified complication; E78.5 - Hyperlipidemia, unspecified (10) Atrial fibrillation: CODE(S): I48.91 - Unspecified atrial fibrillation (11) Chronic kidney disease, stage IV (severe): CODE(S): N18.4 - Chronic kidney disease, stage 4 (severe) (12) Iron deficiency anemia: CODE(S): D50.9 - Iron deficiency anemia, unspecified (13) Aortic stenosis: CODE(S): I35.0 - Nonrheumatic aortic (valve) stenosis (14) B12 deficiency: CODE(S): E53.8 - Deficiency of other specified B group vitamins (15) Depression: CODE(S): F32.A - Depression, unspecified (16) History of hysterectomy: CODE(S): Z90.710 - Acquired absence of both cervix and uterus (17) Morbid obesity with BMI of 40.0-44.9, adult: CODE(S): E66.01 - Morbid (severe) obesity due to excess calories; Z68.41 - Body mass index [BMI] 40.0-44.9, adult PLAN: Plan Patient evaluated at the wound healing center today. Her right knee ulcer is healed. Encouraged her to massage lotion into this area daily to help soften the scarring. Her edema has improved with the use of the 3M 2 layer wraps. Her legs were measured today for compression stockings 15-[address] double tubigrips on her today until she can purchase her compression stockings at either [employer] or [facility] in [place]. She lives in the assisted living at [facility] and she states she believes someone can help her get her stockings on . Stressed importance of keeping legs elevated when sitting. Encouraged ambulation to help prevent lower extremity edema. She is to follow up as needed.
== END 2023-06-05 16:06 | disposition home or self-care (01) ==
LOC: WC 09:45
PROVIDERS: PCP Family Medicine; Referring Provider Family Medicine; Visit Provider Nurse Practitioner Family
DX: L97.112 Non-pressure chronic ulcer of right thigh with fat layer exposed (principal); N18.4 Chronic kidney disease, stage 4 (severe); I48.91 Unspecified atrial fibrillation; E66.01 Morbid (severe) obesity due to excess calories; Z68.41 Body mass index [BMI] 40.0-44.9, adult; E11.69 Type 2 diabetes mellitus with other specified complication; I87.2 Venous insufficiency (chronic) (peripheral); M79.89 Other specified soft tissue disorders; R60.0 Localized edema; M79.3 Panniculitis, unspecified; I12.9 Hypertensive chronic kidney disease with stage 1 through stage 4 chronic kidney disease, or unspecified chronic kidney disease; D50.9 Iron deficiency anemia, unspecified; E53.8 Deficiency of other specified B group vitamins; F32.A Depression, unspecified; Z90.710 Acquired absence of both cervix and uterus
CPT/HCPCS: 99213; G0463